=== PATIENT | female | born 1940 | race Caucasian/White ===

== ENCOUNTER 2023-07-10 09:29 | Outpatient (OUT) | payer MEDICARE, BC, SELFPAY ==
[2023-07-10 09:49] LABS: Bilirubin Urine NEGATIVE (NEGATIVE); Blood Urine LARGE (NEGATIVE); Clarity Urine CLEAR (CLEAR); Color Urine LT. YELLOW (YELLOW); Glucose Urine UA NEGATIVE (NEGATIVE); Ketones Urine NEGATIVE (NEGATIVE); Leukocyte Esterase Urine MODERATE (NEGATIVE); Nitrite Urine NEGATIVE (NEGATIVE); Protein Urine NEGATIVE (NEG/TRACE); Urobilinogen Urine 0.2 EU/dL (0.2-1.0)
[2023-07-10 11:53] LABS: Creatinine Urine Random 190.21 mg/dL (20.00-300.00); Microalbum Creatinine Ratio Ur 11.5 mg/g (0.0-29.9); Microalbumin Urine Random 2.2 mg/dL (<=30.0)
[2023-07-10 14:38] LABS: Alanine Aminotransferase 26 U/L (14-59); Albumin Level 3.9 g/dL (3.4-5.0); Alkaline Phosphatase 63 U/L (46-116); Anion Gap 13.6; Aspartate Amino Transferase 19 U/L (15-37); BUN Creatinine Ratio 18.7; Calcium 9.5 mg/dL (8.5-10.1); Carbon Dioxide 27.5 mmol/L (21.0-32.0); Chloride 103 mmol/L (98-107); Chol HDL Ratio 2.8; Cholesterol 159 mg/dL (<=200); Estimated GFR (African America >60 (>=60); Estimated GFR (Non-African Ame 59 (>=60); Globulin 3.8 g/dL; Glucose 95 mg/dL (74-106); HDL Cholesterol 57 mg/dL (40-60); LDL Cholesterol Calculated 75.6 mg/dL; Potassium 4.1 mmol/L (3.5-5.1); Sodium 140 mmol/L (136-145); Total Protein 7.7 g/dL (6.4-8.2); Triglycerides 132 mg/dL (<=150); VLDL CHOLESTEROL 26.4 mg/dL
== END 2023-07-10 09:30 | disposition home or self-care (01) ==
LOC: LAB 09:34
PROVIDERS: PCP Internal Medicine; Visit Provider Internal Medicine
DX: I12.9 Hypertensive chronic kidney disease with stage 1 through stage 4 chronic kidney disease, or unspecified chronic kidney disease (principal); N18.2 Chronic kidney disease, stage 2 (mild); E78.5 Hyperlipidemia, unspecified
CPT/HCPCS: 36415; 80053; 80061; 81003; 82043; 82570

== ENCOUNTER 2024-01-16 22:26 | Emergency (ER) | payer MEDICARE, BC, SELFPAY ==
[2024-01-16 23:07] VITALS: BP 176/105; PULSE 92; TEMP 37.3; O2SAT 92
--- NOTE | 2024-01-16 23:37 | XR_ITS ---
The [address] [address] Patient Name: JOSE LUIS GARCIA MRN: [id number] date: 1940 Sex: F Assigned Patient Location: ER Current Patient Location: ED.MAIN Accession/Order Number: [id number] Exam Date: 01/16/2024 23:49 Report Date: 01/17/2024 00:57 At the request of: NAOMI BANUELOS Procedure: XR chest 2V EXAM: XR chest 2V HISTORY: Cough. COMPARISON: None. TECHNIQUE: PA and lateral views obtained. FINDINGS: Heart is enlarged. There is vascular cephalization with Bird B lines in the lower lung russell. No focal consolidation or large effusion. No acute bony abnormality. XR/XR chest 2V IMPRESSION: Cardiomegaly and congestive pattern could reflect edema or bronchiolitis. Electronically authenticated by: RAIZA VALDEZ Date: 01/17/2024 00:57
--- NOTE | 2024-01-16 23:38 | ED_ITS ---
HPI HPI - General Adult General Chief complaint: Upper Respiratory Infection Stated complaint: congestion, cough Time Seen by Provider: 01/16/24 22:46 Source: patient Mode of arrival: walk-in Limitations: no limitations History of Present Illness HPI narrative: Patient developed flu-like symptoms on 01/13/24 while returning from a vacation in [place]. She was exposed to a baby who had cold symptoms but never got tested. She complains of headache, fatigue, muscle aches, chest congestion and a productive cough. Nausea but no vomiting. No problems with urination or BMs. She has been taking OTC cold meds without any relief including guaifenesin that was started this morning. Related Data Previous Rx's ?Medication ?Instructions ?Recorded albuterol sulfate 90 mcg/actuation 2 inh inhalation Q6H PRN shortness 01/17/24 aerosol inhaler of breath or wheezing #6.7 grams hczkdfbzxkdtqza-lknijkodxwoarut-OA 5 ml PO Q6H PRN cold symptoms #118 01/17/24 2 mg-30 mg-10 mg/5 mL oral syrup mL (Bromfed DM) Allergies Allergy/AdvReac Type Severity Reaction Status Date / Time Sulfa (Sulfonamide Allergy Mild Verified 01/16/24 23:42 Antibiotics) Opioid HPI Opioid Management Most Recent Opioid Data: No Data to Display Exam Narrative Exam Narrative: Nurses notes and vital signs reviewed and patient is not hypoxic. Afebrile General: Well-appearing and in no apparent distress. Skin: Warm, dry, no pallor noted. No rash. Head: Normocephalic, atraumatic. Neck: Supple, non-tender. No cervical lymphadenopathy or meningismus Eye: Pupils are equal, round and EOMI. No scleral icterus. Ears, Nose, Mouth, and Throat: TMs are clear, no posterior oropharynx erythema or Palatal petechia. Moderate nasal mucosal hypertrophy Oral mucosa is moist, uvula is mid-line Cardiovascular: Regular Rate and Rhythm without murmur, gallop or rub. Respiratory: No accessory muscle use or respiratory distress. Lungs are clear to auscultation, no wheezing, rales or rhonchi Musculoskeletal: normal ROM, no calf or popliteal tenderness, no lower extremity edema/swelling GI: Abdomen is soft, non-distended. Normal bowel sounds. No tenderness to palpation. No rebound, guarding, or rigidity noted. Neurological: A&O x4. No cranial nerve dysfunction observed. No truncal ataxia. Moves all extremities. Sensation intact. Psychiatric: Cooperative and interactive. Normal mood and affect. Constitutional Vital Signs, click to edit/add: Last Vital Signs Temp 99.1 F 01/16/24 23:07 Pulse 92 H 01/16/24 23:07 Resp 16 01/16/24 23:07 BP 176/105 H 01/16/24 23:07 Pulse Ox 95 01/16/24 23:54 O2 Del Method Room Air 01/16/24 23:54 Course Vital Signs Vital signs: Vital Signs Temperature 99.1 F 01/16/24 23:07 Pulse Rate 92 H 01/16/24 23:07 Respiratory Rate 16 01/16/24 23:07 Blood Pressure 176/105 H 01/16/24 23:07 Pulse Oximetry 92 L 01/16/24 23:07 Oxygen Delivery Method Room Air 01/16/24 23:07 Temperature 99.1 F 01/16/24 23:07 Pulse Rate 92 H 01/16/24 23:07 Respiratory Rate 16 01/16/24 23:07 Blood Pressure 176/105 H 01/16/24 23:07 Pulse Oximetry 95 01/16/24 23:54 Oxygen Delivery Method Room Air 01/16/24 23:54 Medical Decision Making MDM Narrative Medical decision making narrative: The patient tested negative for influenza and COVID. Chest x-ray showed findings consistent with bronchiolitis. The remainder of the blood tests were also unremarkable including a negative troponin and negative BNP. Patient and family were informed of results. She was discharged home with a prescription for Bromfed syrup to take for cough and an albuterol mdi for any continued bronchitis. She was given a treatment with an albuterol neb to help open things up here in the emergency department for discharge Lab Data Lab results reviewed: Yes I reviewed the patient's lab results Labs: Lab Results 01/16/24 01/16/24 Range/Units 23:47 23:49 WBC 10.4 (4.0-11.0) 10^3/uL RBC 4.75 (4.20-5.40) 10^6/uL Hgb 14.0 (12.0-16.0) g/dL Hct 43.8 (36.0-48.0) % MCV 92.2 (81.0-99.0) fL MCH 29.5 (26.7-34.0) pg MCHC 32.0 (29.9-35.2) g/dL RDW 12.5 (11.0-15.0) % Plt Count 145 L (150-450) 10^3/uL MPV 10.7 (9.5-13.5) fL Neut % (Auto) 85.6 H (43.0-75.0) % Lymph % (Auto) 7.0 L (20.5-60.0) % [place] % (Auto) 6.3 (1.7-12.0) % Eos % (Auto) 0.5 L (0.9-7.0) % Baso % (Auto) 0.3 (0.2-2.0) % Neut # (Auto) 8.9 H (1.4-6.5) 10^3/uL Lymph # (Auto) 0.7 L (1.2-3.8) 10^3/uL [place] # (Auto) 0.7 (0.3-0.8) 10^3/uL Eos # (Auto) 0.1 (0.0-0.7) 10^3/uL Baso # (Auto) 0.0 (0.0-0.1) 10^3/uL Abs Immat Gran (auto) 0.03 (0.00-0.03) 10^3/uL Imm/Tot Granulo (auto) 0.3 (0.0-0.5) % Sodium 131 L (136-145) mmol/L Potassium 4.7 (3.5-5.1) mmol/L Chloride 97 L (98-107) mmol/L Carbon Dioxide 22.8 (21.0-32.0) mmol/L Anion Gap 15.9 BUN 12.0 (7.0-18.0) mg/dL Creatinine 0.82 (0.55-1.02) mg/dL Est GFR ( Amer) >60 (>=60) Est GFR (Non-Af Amer) >60 (>=60) BUN/Creatinine Ratio 14.6 Glucose 110 H (74-106) mg/dL Calcium 9.2 (8.5-10.1) mg/dL Total Bilirubin 1.5 H (0.2-1.0) mg/dL AST 38 H (15-37) U/L ALT 23 (14-59) U/L Alkaline Phosphatase 69 (46-116) U/L Troponin I High Sens 13.6 (4.0-51.3) pg/mL NT-Pro-B Natriuret Pep 103.0 (<=1800.0) pg/mL Total Protein 7.6 (6.4-8.2) g/dL Albumin 3.5 (3.4-5.0) g/dL Globulin 4.1 g/dL Albumin/Globulin Ratio 0.9 Influenza Type A Ag Negative Influenza Type B Ag Negative SARS-CoV-2 Ag (CV2AG) Negative (NEGATIVE) Imaging Data Chest x-ray: Radiologist's impression: ITS Impressions Chest X-Ray 01/16/24 23:37 IMPRESSION: Cardiomegaly and congestive pattern could reflect edema or bronchiolitis. Electronically authenticated by: RAIZA VALDEZ Date: 01/17/2024 00:14 Discharge Plan Discharge Stand Alone Forms: Portal Instructions Chief Complaint: Upper Respiratory Infection Clinical Impression: Bronchiolitis Patient Disposition: Home, Self-Care Time of Disposition Decision: 00:30 Prescriptions / Home Meds: New kwejajlslpyfzgz-kxcismdek-QQ [Bromfed DM] 2-30-10 mg/5 mL syrup 5 ml PO Q6H PRN (Reason: cold symptoms) Qty: 118 0RF albuterol sulfate 90 mcg/actuation HFA aerosol inhaler 2 inh inhalation Q6H PRN (Reason: shortness of breath or wheezing) Qty: 6.7 0RF Print Language: Bahraini Instructions: Bronchiolitis (ED) Referrals: LAW OROPEZA [Primary Care Provider] - 1 week
[2024-01-16 23:54] VITALS: O2SAT 95
[2024-01-16 23:59] LABS: Basophils Percent Auto 0.3 % (0.2-2.0); Eosinophils Absolute Auto 0.1 10^3/uL (0.0-0.7); Eosinophils Percent Auto 0.5 % (0.9-7.0); Hematocrit 43.8 % (36.0-48.0); Immature Granulocytes Abs Auto 0.03 10^3/uL (0.00-0.03); Immature Granulocytes Pct Auto 0.3 % (0.0-0.5); Lymphocytes Absolute Auto 0.7 10^3/uL (1.2-3.8); Mean Corpuscular Hemoglobin 29.5 pg (26.7-34.0); Mean Corpuscular Volume 92.2 fL (81.0-99.0); Mean Platelet Volume 10.7 fL (9.5-13.5); Monocytes Absolute Auto 0.7 10^3/uL (0.3-0.8); Monocytes Percent Auto 6.3 % (1.7-12.0); Neutrophils Absolute Auto 8.9 10^3/uL (1.4-6.5); Neutrophils Percent Auto 85.6 % (43.0-75.0); Platelet Count 145 10^3/uL (150-450); Red Blood Count 4.75 10^6/uL (4.20-5.40); Red Cell Distribution Width 12.5 % (11.0-15.0); White Blood Count 10.4 10^3/uL (4.0-11.0)
[2024-01-17 00:09] LABS: Influenza Virus A Antigen Negative; Influenza Virus B Antigen Negative; Internal Control Within Normal Limits; SARS-CoV-2 Ag NEGATIVE (NEGATIVE)
[2024-01-17 00:11] LABS: Anion Gap 15.9
[2024-01-17 00:18] LABS: Alanine Aminotransferase 23 U/L (14-59); Albumin Globulin Ratio 0.9; Albumin Level 3.5 g/dL (3.4-5.0); Alkaline Phosphatase 69 U/L (46-116); Aspartate Amino Transferase 38 U/L (15-37); BUN Creatinine Ratio 14.6; Bilirubin Total 1.5 mg/dL (0.2-1.0); Calcium 9.2 mg/dL (8.5-10.1); Carbon Dioxide 22.8 mmol/L (21.0-32.0); Chloride 97 mmol/L (98-107); Estimated GFR (African America >60 (>=60); Estimated GFR (Non-African Ame >60 (>=60); Globulin 4.1 g/dL; Glucose 110 mg/dL (74-106); Potassium 4.7 mmol/L (3.5-5.1); Sodium 131 mmol/L (136-145); Total Protein 7.6 g/dL (6.4-8.2); Troponin I High Sensitivity 13.6 pg/mL (4.0-51.3)
[2024-01-17 00:32] VITALS: O2SAT 93
[2024-01-17] MEDS: ALBUTEROL SULFATE 2.5 MG/3 ML VIAL NEB IH (00:50)
[2024-01-17 00:52] VITALS: PULSE 92; O2SAT 92
== END 2024-01-17 01:09 | disposition home or self-care (01) ==
PROVIDERS: Emergency Provider Emergency Medicine; PCP Internal Medicine
DX: J21.9 Acute bronchiolitis, unspecified (principal)
CPT/HCPCS: 36415; 71046; 80053; 83880; 84484; 85025; 87804; 87811; 94640; 99284

== ENCOUNTER 2024-06-18 07:58 | Outpatient (OUT) | payer MEDICARE, BC, SELFPAY ==
[2024-06-18 08:28] LABS: Basophils Percent Auto 0.8 % (0.2-2.0); Eosinophils Absolute Auto 0.1 10^3/uL (0.0-0.7); Eosinophils Percent Auto 2.3 % (0.9-7.0); Hematocrit 44.4 % (36.0-48.0); Hemoglobin 14.5 g/dL (12.0-16.0); Immature Granulocytes Abs Auto 0.01 10^3/uL (0.00-0.03); Immature Granulocytes Pct Auto 0.2 % (0.0-0.5); Lymphocytes Percent Auto 38.9 % (20.5-60.0); Mean Corpuscular HGB Conc 32.7 g/dL (29.9-35.2); Mean Corpuscular Volume 88.8 fL (81.0-99.0); Monocytes Absolute Auto 0.4 10^3/uL (0.3-0.8); Monocytes Percent Auto 8.3 % (1.7-12.0); Neutrophils Absolute Auto 2.6 10^3/uL (1.4-6.5); Neutrophils Percent Auto 49.5 % (43.0-75.0); Platelet Count 153 10^3/uL (150-450); Red Cell Distribution Width 13.8 % (11.0-15.0); White Blood Count 5.2 10^3/uL (4.0-11.0)
[2024-06-18 09:02] LABS: Creatinine Urine Random 99.43 mg/dL (20.00-300.00); Microalbumin Urine Random 1.3 mg/dL (<=30.0)
[2024-06-18 09:36] LABS: Alanine Aminotransferase 34 U/L (14-59); Albumin Globulin Ratio 1.1; Albumin Level 3.8 g/dL (3.4-5.0); Alkaline Phosphatase 86 U/L (46-116); Anion Gap 13.5; Aspartate Amino Transferase 29 U/L (15-37); BUN Creatinine Ratio 16.1; Bilirubin Total 0.9 mg/dL (0.2-1.0); Calcium 9.4 mg/dL (8.5-10.1); Carbon Dioxide 25.5 mmol/L (21.0-32.0); Chloride 105 mmol/L (98-107); Chol HDL Ratio 2.6; Cholesterol 158 mg/dL (<=200); Estimated GFR (African America >60 (>=60); Estimated GFR (Non-African Ame >60 (>=60); Globulin 3.4 g/dL; Glucose 93 mg/dL (74-106); HDL Cholesterol 60 mg/dL (40-60); Sodium 140 mmol/L (136-145); Thyroid Stimulating Hormone 3.474 uIU/mL (0.358-3.740); Total Protein 7.2 g/dL (6.4-8.2); Triglycerides 130 mg/dL (<=150)
[2024-06-18 09:38] LABS: Free T4 0.91 ng/dL (0.76-1.46)
== END 2024-06-18 07:59 | disposition home or self-care (01) ==
LOC: LAB 08:00
PROVIDERS: PCP Internal Medicine; Visit Provider Internal Medicine
DX: I12.9 Hypertensive chronic kidney disease with stage 1 through stage 4 chronic kidney disease, or unspecified chronic kidney disease (principal); N18.31 Chronic kidney disease, stage 3a; M15.9 Polyosteoarthritis, unspecified; M81.0 Age-related osteoporosis without current pathological fracture; E55.9 Vitamin D deficiency, unspecified; E78.2 Mixed hyperlipidemia; F51.01 Primary insomnia; G25.81 Restless legs syndrome
CPT/HCPCS: 36415; 80053; 80061; 82043; 82570; 84439; 84443; 85025

== ENCOUNTER 2025-01-13 09:01 | Outpatient (OUT) | payer MEDICARE, BC, SELFPAY ==
--- OUTSIDE RECORDS SUMMARY | 2025-01-13 09:24 | XMS_ITS | CCD ---
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 Name Role Phone DR LAW OROPEZA Primary Care Unavailable JOHNNA, DR FOY Consulting Unavailable JOHNNA, DR FOY Attending Unavailable JOHNNA, DR FOY Admitting Unavailable JOHNNA, DR FOY Primary Care Unavailable COAL RUN, DR CAITIE Gordon Consulting Unavailable JOHNNA, DR FOY Attending Unavailable JOHNNA, DR FOY Admitting Unavailable JOHNNA, DR FOY Consulting Unavailable JOHNNA, DR FOY Primary Care Unavailable JOHNNA, DR FOY Consulting Unavailable JOHNNA, DR FOY Attending Unavailable JOHNNA, DR FOY Admitting Unavailable Law Oropeza DO Unavailable Law Oropeza DO Primary Care Provider Dave Powers MD Unavailable [phone] BRAYDEN MANZANARES Attending Unavailable LAW OROPEZA Referring Unavailable KAVYA SINGH Attending Unavailable BRAYDEN MANZANARES Attending Unavailable LAW OROPEZA Referring Unavailable AMERICO LEONE Attending Unavailable BRAYDEN MANZANARES Attending Unavailable LAW OROPEZA Attending Unavailable LAW OROPEZA Referring Unavailable LAW OROPEZA Attending Unavailable LAW OROPEZA Referring Unavailable BRAYDEN MANZANARES Attending Unavailable JENNY LEIGH Attending Unavailable LAW OROPEZA Attending Unavailable LAW OROPEZA Referring Unavailable LAW OROPEZA Attending Unavailable LAW OROPEZA Referring Unavailable BRAYDEN MANZANARES Attending Unavailable LAW OROPEZA Referring Unavailable AMERICO LEONE Referring Unavailable AMERICO LEONE Referring Unavailable Allergies Allergy Classification Reported Allergen(s) Allergy Type Date of Onset Reaction(s) Facility (1 source) Sulfonamides (Antibiotic) Drug allergy (disorder) [facility] Repository (15 sources) Sulfanilamide Allergy to substance 3 Unknown [facility] Work Phone: Medications Current Medications Medication Drug Class(es) Dates Sig (Normalized) Sig (Original) acetaminophen 500 mg oral tablet (15 sources) take 1 tablet by mouth every eight hours as needed for pain acetaminophen (Tylenol) 500 MG tablet Take 500 mg by mouth every 8 (eight) hours if needed for mild pain. Active albuterol 0.83 mg/ml inhalation solution (18 sources) beta2-Adrenergic Agonist Start: 01-23-2024 End: 06-24-2024 albuterol (2.5 MG/3ML) 0.083% nebulizer solution Indications: Mild intermittent reactive airway disease with acute exacerbation (CMS/HCC) Take 3 mL (2.5 mg) by nebulization 4 (four) times a day as needed for wheezing or shortness of breath 360 mL 3 01/23/2024 06/24/2024 Discontinued Start: 01-17-2024 take 2 puff(s) by in halation every six hours albuterol HFA 90 mcg/act inhaler Inhale 2 puffs every 6 (six) hours if needed 01/17/2024 Active aspirin 81 mg delayed release oral tablet (15 sources) Platelet Aggregation Inhibitor, Nonsteroidal Anti-inflammatory Drug take 1 tablet by mouth once daily aspirin 81 MG EC tablet Take 81 mg by mouth 1 (one) time each day at the same time. Active atorvastatin 20 mg oral tablet (15 sources) HMG-CoA Reductase Inhibitor Start : 05-12 take 1 tablet by mouth at bedtime atorvastatin (Lipitor) 20 MG tablet Indications: Mixed hyperlipidemia (CMS/HCC) TAKE 1 TABLET BY MOUTH AT BEDTIME 90 tablet 3 05/12/2024 Active Calcium Citrate / Vitamin D (15 sources) take 1 tablet by mouth once daily Calcium Citrate-Vitamin D (CALCIUM CITRATE PETITE/VIT D PO) Take 1 tablet by mouth 1 (one) time each day at the same time. Active doxycycline hyclate 100 mg oral capsule (2 sources) Tetracycline-class Drug Start : 09-30 End: 10-07 doxycycline (Vibramycin) 100 MG capsule Indications: Lower respiratory infection , Acute non-recurrent pansinusitis Take 1 capsule (100 mg) by mouth in the morning and 1 capsule (100 mg) before bedtime. Do all this for 7 days. Take with at least 8 ounces (large glass) of water, do not lie down for 30 minutes after. 14 capsule 09/30/2024 10/07/2024 Active glucosamine sulfate 500 mg oral capsule (15 sources) take 1 capsule by mouth once daily Glucosamine 500 MG capsule Take 1 capsule by mouth 1 (one) time each day at the same time. Active hydrocortisone 25 mg/ml topical cream (15 sources) Corticosteroid Start : 03-10 hydrocortisone 2.5 % cream Indications: Rash APPLY TO AFFECTED AREA TWICE A DAY 28.35 g 2 03/10/2024 Active hydrocortisone acetate 25 mg/ml / pramoxine hydrochloride 10 mg/ml rectal cream (15 sources) Corticosteroid Start : 07-18 pramoxine-hydrocortison e, perianal, (Analpram HC) 2.5-1 % cream Indications: Hemorrhoids, unspecified hemorrhoid type Insert 1 application into the rectum 3 (three) times a day as needed for hemorrhoids. 30 g 1 07/18/2023 Active ibandronic acid 150 mg oral tablet (6 sources) Bisphosphonate Start : 08-24 End: 08-24 take 1 tablet by mouth every 30 days in the morning ibandronate (Boniva) 150 MG tablet Indications: Other osteoporosis without current pathological fracture (CMS/HCC) Take 1 tablet (150 mg) by mouth every 30 (thirty) days Take in morning with full glass of water on an empty stomach. No food, drink, meds, or lying down for 60 minutes after. 12 tablet 08/24/2024 08/24/2025 Active magnesium oxide 400 mg oral tablet (15 sources) take 1 tablet by mouth once daily magnesium oxide (Mag-Ox) 400 MG tablet Take 400 mg by mouth 1 (one) time each day at the same time. Active methylPREDNISolone (2 sources) Corticosteroid Start : 09-30 End: 10-07 methylPREDNISolone (Medrol Dospak) 4 MG tablets Indications: Lower respiratory infection , Acute non-recurrent pansinusitis Take as directed on package. 21 tablet 09/30/2024 10/07/2024 Active ksbknacumkhu-exfr-evrvq als-folic acid (Centrum Silver, geriatric,) tablet (15 sources) take 1 tablet by mouth in the morning gktijsvebszu-ppzs-onzza als-folic acid (Centrum Silver, geriatric,) tablet Take 1 tablet by mouth in the morning. Active niacin 500 mg oral tablet (15 sources) Nicotinic Acid take 1 tablet by mouth once daily niacin 500 MG tablet Take 500 mg by mouth 1 (one) time each day at the same time. Active oseltamivir 75 mg oral capsule (2 sources) Neuraminidase Inhibitor Start : 09-24 End: 09-29 take 1 capsule by mouth in the morning oseltamivir (Tamiflu) 75 MG capsule Indications: Influenza A Take 1 capsule (75 mg) by mouth in the morning and 1 capsule (75 mg) before bedtime. Do all this for 5 days. 10 capsule 09/24/2024 09/29/2024 Active rOPINIRole 0.25 mg oral tablet (15 sources) Nonergot Dopamine Agonist rOPINIRole (Requip) 0.25 MG tablet Take 0.25 mg by mouth as needed at bedtime Active traZODone hydrochloride 50 mg oral tablet (15 sources) Serotonin Reuptake Inhibitor Start : 07-18 End: 07-17 traZODone (Desyrel) 50 MG tablet Indications: Primary insomnia Take 1 tablet (50 mg) by mouth as needed at bedtime for sleep. 30 tablet 4 07/18/2023 Active Problems Active Problems Problem Classification Problem Date Documented Date Episodic/Chronic Administrative/social admission (4 sources) Patient encounter status; Translations: [Other specified counseling] 07-15-2024 Episodic Asthma (1 source) Exacerbation of moderate persistent asthma; Translations: [Moderate persistent asthma with (acute) exacerbation] 07-21-2024 Chronic Chronic kidney disease (17 sources) Chronic kidney disease stage 3A ; Translations: [Stage 3a chronic kidney disease (HCC)] Onset: 05-27-2023 02-19-2024 Chronic Disorders of lipid metabolism (20 sources) Pure hypercholesterolemia, unspecified; Translations: [Hyperlipidemia] Onset: 01-11-2023 Chronic Essential hypertension (20 sources) Essential (primary) hypertension; Translations: [Essential hypertension] Onset: 01-18-2023 05-27-2023 Chronic Influenza (2 sources) Influenza due to Influenza A virus; Translations: [Influenza due to other identified influenza virus with other respiratory manifestations] 09-24-2024 Episodic Malaise and fatigue (4 sources) Chronic fatigue, unspecified; Translations: [CHRONIC FATIGUE UNSPECIFIED] Onset: 07-13-2022 Chronic Miscellaneous mental health disorders (17 sources) Primary insomnia; Translations: [Primary insomnia] Onset: 07-18-2023 07-18-2023 Chronic Mycoses (2 sources) Onychomycosis; Translations: [Tinea unguium] 07-21-2024 Episodic Nutritional deficiencies (17 sources) Vitamin D deficiency; Translations: [Vitamin D deficiency, unspecified] Onset: 05-27-2023 05-27-2023 Chronic Osteoarthritis (20 sources) Degenerative joint disease involving multiple joints; Translations: [Primary generalized (osteo)arthritis] Onset: 05-27-2023 Resolved: 06-24-2024 05-27-2023 Chronic Osteoporosis (18 sources) Age-related osteoporosis without current pathological fracture; Translations: [Osteoporosis] Onset: 08-23-2022 05-27-2023 Chronic Other aftercare (1 source) Other superintendent terminal (current) drug therapy; Translations: [OTH HANGERSMITH CURRENT DRUG THERAPY] Onset: 01-18-2023 Episodic Other connective tissue disease (2 sources) Pain in both feet; Translations: [Pain in right foot] 07-21-2024 Episodic Other hereditary and degenerative nervous system conditions (17 sources) Restless legs; Translations: [Restless legs syndrome] Onset: 05-27-2023 05-27-2023 Chronic Other lower respiratory disease (2 sources) Cough; Translations: [Acute cough] 09-24-2024 Episodic Other lower respiratory disease (2 sources) Lower respiratory tract infection; Translations: [Unspecified acute lower respiratory infection] 09-30-2024 Episodic Other nervous system disorders (15 sources) Chronic pain; Translations: [Other chronic pain] Onset: 05-27-2023 Resolved: 06-24-2024 06-24-2024 Chronic Other upper respiratory infections (2 sources) Acute pansinusitis; Translations: [Acute pansinusitis, unspecified] 09-30-2024 Episodic Residual codes; unclassified (2 sources) Postmenopausal state; Translations: [Asymptomatic menopausal state] 07-15-2024 Episodic Past or Other Problems Problem Classification Problem Date Documented Da te Episodic/Chronic Hemorrhoids (15 sources) Hemorrhoids; Translations: [Unspecified hemorrhoids] Onset: 05-27-2023 3 Episodic Immunizations and screening for infectious disease (2 sources) Needs influenza immunization; Translations: [Encounter for immunization] 06-24-2024 Episodic Malaise and fatigue (17 sources) Fatigue; Translations: [Other fatigue] Onset: 02-04-2024 Resolved: 02-04-2024 02-04-2024 Episodic Residual codes; unclassified (4 sources) Asymptomatic menopausal state; Translations: [ASYMPTOMATIC MENOPAUSAL STATE] Onset: 08-17-2022 Episodic Results Test Name Value Interpretation Reference Range Facility Laboratory - Microbiology an d Antimicrobial susceptibilityon 09-24-2024 SARS-CoV-2 (COVID-19) RNA REMI+probe Ql (Unsp spec) Negative [facility] No Panel Informationon 09-24 FLU A Positive [facility] FLU B Negative [facility] Interpretation and review of laboratory results Abnormal [facility] BI MAMMOGRAM SCREENING TOMOS YNTHESIS BILATERALon 08-21-2024 BI MAMMOGRAM SCREENING TOMOSYNTHESIS BILATERAL This is a summary report. The complete report is available in the patient's medical record. If you cannot access the medical record, please contact the sending organization for a detailed fax or copy. Examination: BI MAMMOGRAM SCREENING TOMOSYNTHESIS BILATERAL Clinical History: Screening Technique: Screening digital mammography study of both breasts was performed with 2-D and 3-D tomosynthesis imaging. Study was compared to the prior exam dated 05/28/2022. Findings: There is no evidence of interval dominant spiculated mass, grouped microcalcifications, or skin thickening which would be suggestive of malignancy. A few small benign-appearing asymmetric densities on the left similar to the prior study. A few benign-appearing calcifications as well as vascular calcifications are noted bilaterally. IMPRESSION: Impression: No specific evidence of malignancy seen in either breast. BIRADS 2 - Benign DENSITY: There are scattered areas of fibroglandular density FOLLOW-UP: Routine Screening Mamm ELECTRONICALLY SIGNED BY: Marcos Arreaga M.D. Normal Not Available DEXA BONE DENSITYon 08-21-20 DEXA BONE DENSITY Examination: DEXA BRIEN NE DENSITY Clinical History: Asymptomatic menopausal state Technique: Bone density study was performed. T score values for the lumbar spine, right femoral neck and left femoral neck were obtained. Comparison: 11/06/2019 Findings: Value for the lumbar spine from L1-L4 is -0.4. Value for the right femoral neck is -2.2. Value for the left femoral neck is -1.2. No evidence of osteoporosis. Study was compared to the prior exam dated 11/02/2019 which demonstrates osteoporosis with high increased fracture risk. Findings are mildly improved compared to the prior exam. IMPRESSION: Impression: Findings compatible with severe osteopenia with moderate to high increased fracture risk. Findings are mildly improved compared to the prior exam. ELECTRONICALLY SIGNED BY: Marcos Arreaga M.D. Normal Not Available ALL CBC WITH AUTO DIFFon BASOPHILS ABSOLUTE AUTO 0.0 [facility] Basophils/100 WBC (Bld) 0.8 % 0.2 - 2.0 % [facility] Eosinophils/100 WBC (Bld) 2.3 % 0.9 - 7.0 % [facility] Erythrocyte distribution width (RBC) [Ratio] 13.8 % 11.0 - 15.0 % [facility] Hematocrit (Bld) [Volume fraction] 44.4 % 36.0 - 48.0 % [facility] Hemoglobin (Bld) [Mass/Vol] 14.5 g/dL 12.0 - 16.0 g/dL [facility] IMMATURE GRANULOCYTES ABS AUTO 0.01 [facility] Immature granulocytes/100 WBC (Bld) 0.2 % 0.0 - 0.5 % [facility] LYMPHOCYTES ABSOLUTE AUTO 2.0 [facility] Lymphocytes/100 WBC (Bld) 38.9 % 20.5 - 60.0 % [facility] MCH (RBC) [Entitic mass] 29.0 pg 26.7 - 34.0 pg [facility] MCHC (RBC) [Mass/Vol] 32.7 g/dL 29.9 - 35.2 g/dL [facility] MCV (RBC) [Entitic vol] 88.8 fL 81.0 - 99.0 fL [facility] MONOCYTES ABSOLUTE AUTO 0.4 [facility] Monocytes/100 WBC (Bld) 8.3 % 1.7 - 12.0 % [facility] NEUTROPHILS ABSOLUTE AUTO 2.6 [facility] Neutrophils/100 WBC (Bld) 49.5 % 43.0 - 75.0 % [facility] Platelet mean volume (Bld) [Entitic vol] 10.0 fL 9.5 - 13.5 fL [facility] TBH EO # 0.1 [facility] PLT 153 [facility] RBC 5.00 [facility] WBC 5.2 [facility] XR CHEST 2 VIEWSon 4 XR CHEST 2 VIEWS FINDINGS: Persistent diffuse interstitial prominence corresponds within the bases with upper lobe emphysematous changes, extent of which within the bases is less conspicuous suggesting a resolving infectious pneumonia. No pleural effusion , lymphadenopathy, or significant focal areas of parenchymal consolidation. IMPRESSION: Findings consistent with resolving pneumonia with underlying COPD/interstitial lung disease TRANSCRIBED BY: ELECTRONICALLY SIGNED BY: Avtar Lee MD Normal Not Available CBC AUTO DIFFon 01-11-2023 BASO # 0.1 103/ul Normal 0.0-0.1 [facility] Comment on above: Performed By: #### C BC #### [facility] [address] [place] [address] Dr. Bill Moise Basophils/100 WBC (Bld) 0.8 % Normal 0.2-2.0 [facility] Comment on above: Performed By: #### C BC #### [facility] [address] [place] [address] Dr. Bill Moise EO # 0.2 103/ul Normal 0.0-0.7 [facility] Comment on above: Performed By: #### C BC #### [facility] [address] [place] [address] Dr. Bill Moise Eosinophils/100 WBC (Bld) 2.6 % Normal 0.9-7.0 [facility] Comment on above: Performed By: #### C BC #### [facility] [address] [place] [address] Dr. Bill Moise Erythrocyte distribution width (RBC) [Ratio] 13.0 % Normal 11.0-15.0 [facility] Comment on above: Performed By: #### C BC #### [facility] [address] [place] [address] Dr. Bill Moise Hematocrit (Bld) [Volume fraction] 42.1 % Normal 36.0-48.0 [facility] Comment on above: Performed By: #### C BC #### [facility] [address] [place] [address] Dr. Bill Moise Hemoglobin (Bld) [Mass/Vol] 13.8 g/dL Normal 12.0-16.0 [facility] Comment on above: Performed By: #### C BC #### [facility] [address] [place] [address] Dr. Bill Moise IG # 0.02 10e3/ul Normal 0.00-0.03 [facility] Comment on above: Performed By: #### C BC #### [facility] [address] [place] [address] Dr. Bill Moise IG % 0.3 % Normal 0.0-0.5 [facility] Comment on above: Performed By: #### C BC #### [facility] [address] [place] [address] Dr. Bill Moise LYMPH # 1.6 103/ul Normal 1.2-3.8 [facility] Comment on above: Performed By: #### C BC #### [facility] [address] [place] [address] Dr. Bill Moise Lymphocytes/100 WBC (Bld) 25.2 % Normal 20.5-60.0 [facility] Comment on above: Performed By: #### C BC #### [facility] [address] [place] [address] Dr. Bill Moise MANUAL DIFF REQ NO Normal [facility] Comment on above: Performed By: #### C BC #### [facility] [address] [place] [address] Dr. Bill Moise MCH (RBC) [Entitic mass] 28.8 pg Normal 26.7-34.0 [facility] Comment on above: Performed By: #### C BC #### [facility] [address] [place] [address] Dr. Bill Moise MCHC (RBC) [Mass/Vol] 32.8 g/dL Normal 29.9-35.2 [facility] Comment on above: Performed By: #### C BC #### [facility] [address] [place] [address] Dr. Bill Moise MCV (RBC) [Entitic vol] 87.7 fL Normal 81.0-99.0 [facility] Comment on above: Performed By: #### C BC #### [facility] [address] [place] [address] Dr. Bill Moise MONO # 0.5 103/ul Normal 0.3-0.8 [facility] Comment on above: Performed By: #### C BC #### [facility] [address] [place] [address] Dr. Bill Moise Monocytes/100 WBC (Bld) 8.2 % Normal 1.7-12.0 [facility] Comment on above: Performed By: #### C BC #### [facility] [address] [place] [address] Dr. Bill Moise NEUT # 4.1 103/ul Normal 1.4-6.5 [facility] Comment on above: Performed By: #### C BC #### [facility] [address] [place] [address] Dr. Bill Moise Neutrophils/100 WBC (Bld) 62.9 % Normal 43.0-75.0 [facility] Comment on above: Performed By: #### C BC #### [facility] [address] [place] [address] Dr. Bill Moise Platelet mean volume (Bld) [Entitic vol] 9.9 fL Normal 9.5-13.5 [facility] Comment on above: Performed By: #### C BC #### [facility] [address] [place] [address] Dr. Bill Moise PLT 163 103/ul Normal 150-450 [facility] Comment on above: Performed By: #### C BC #### [facility] [address] [place] [address] Dr. Bill Moise RBC 4.80 106/ul Normal 4.20-5.40 [facility] Comment on above: Performed By: #### C BC #### [facility] [address] [place] [address] Dr. Bill Moise WBC 6.5 103/ul Normal 4.0-11.0 [facility] Comment on above: Performed By: #### C BC #### [facility] [address] [address] [address] Bill Moise LIPID PROFILEon 01-11-2023 CHOL-HDL RATIO NORM SEE BELOW Normal [facility] Comment on above: Result Comment: 3.3 - 4.4 LOW RISK 4.4 - 7.1 AVERAGE RISK 7.1 - 11.0 MODERATE RISK >11.0 HIGH RISK Performed By: #### L IPID, TSH, CMP #### [facility] [address] [address] [address] Bill Moise Cholesterol [Mass/Vol] 144 mg/dL Normal <=200 [facility] Comment on above: Performed By: #### L IPID, TSH, CMP #### [facility] [address] [address] [address] Bill Moise Cholesterol in HDL [Mass/Vol] 59 mg/dL Normal 40-60 [facility] Comment on above: Performed By: #### L IPID, TSH, CMP #### [facility] [address] [address] [address] Bill Moise Cholesterol in LDL [Mass/Vol] 69.8 mg/dL Normal [facility] Comment on above: Performed By: #### L IPID, TSH, CMP #### [facility] [address] [address] [address] Bill Moise Cholesterol.total/Ch olesterol in HDL [Mass ratio] 2.4 {ratio} Normal [facility] Comment on above: Performed By: #### L IPID, TSH, CMP #### [facility] [address] [address] [address] iBll Moise HDL NORMAL > or = 60 mg/dl - LO W CARDIOVASCULAR RISK <40 mg/dl - HIGH CARDIOVASCULAR RISK Normal [facility] Comment on above: Performed By: #### L IPID, TSH, CMP #### [facility] [address] [address] [address] Bill Moise LDL CALC NORMAL SEE BELOW Normal [facility] Comment on above: Result Comment: <100 mg/dl OPTIMAL 100 - 129 mg/dl NEAR OR ABOVE OPTIMAL 130 - 159 mg/dl BORDERLINE HIGH 160 - 189 mg/dl HIGH >190 mg/dl VERY HIGH Performed By: #### L IPID, TSH, CMP #### [facility] [address] [place] [address] Dr. Bill Moise Triglyceride [Mass/Vol] 76 mg/dL Normal <=150 [facility] Comment on above: Performed By: #### L IPID, TSH, CMP #### [facility] [address] [address] [address] Bill Moise VLDL CALC 15.2 mg/dL Normal [facility] Comment on above: Performed By: #### L IPID, TSH, CMP #### [facility] [address] [place] [address] Dr. Bill Moise PROF 14(COMP METB)on 023 Albumin [Mass/Vol] 3.6 g/dL Normal 3.4-5.0 [facility] Comment on above: Performed By: #### L IPID, TSH, CMP #### [facility] [address] [place] [address] Dr. Bill Moise Albumin/Globulin [Mass ratio] 1.1 {ratio} Normal [facility] Comment on above: Performed By: #### L IPID, TSH, CMP #### [facility] [address] [place] [address] Dr. Bill Moise ALP [Catalytic activity/Vol] 51 U/L Normal 46-116 [facility] Comment on above: Performed By: #### L IPID, TSH, CMP #### [facility] [address] [place] [address] Dr. Bill Moise ALT [Catalytic activity/Vol] 28 U/L Normal 14-59 [facility] Comment on above: Performed By: #### L IPID, TSH, CMP #### [facility] [address] [place] [address] Dr. Bill Moise Anion gap [Moles/Vol] 14.4 mmol/L Normal [facility] Comment on above: Performed By: #### L IPID, TSH, CMP #### [facility] [address] [address] [address] Bill Moise AST [Catalytic activity/Vol] 21 U/L Normal 15-37 [facility] Comment on above: Performed By: #### L IPID, TSH, CMP #### [facility] [address] [address] [address] Bill Moise Bilirubin [Mass/Vol] 0.9 mg/dL Normal 0.2-1.0 [facility] Comment on above: Performed By: #### L IPID, TSH, CMP #### [facility] [address] [address] [address] Bill Moise Calcium [Mass/Vol] 9.3 mg/dL Normal 8.5-10.1 [facility] Comment on above: Performed By: #### L IPID, TSH, CMP #### [facility] [address] [place] [address] Dr. Bill Moise Chloride [Moles/Vol] 106 mmol/L Normal 98-107 [facility] Comment on above: Performed By: #### L IPID, TSH, CMP #### [facility] [address] [address] [address] Bill Moise CO2 [Moles/Vol] 25.9 mmol/L Normal 21.0-32.0 [facility] Comment on above: Performed By: #### L IPID, TSH, CMP #### [facility] [address] [address] [address] Bill Moise Creatinine [Mass/Vol] 0.87 mg/dL Normal 0.55-1.02 [facility] Comment on above: Performed By: #### L IPID, TSH, CMP #### [facility] [address] [address] [address] Bill Moise EGFR-AF NORWEGIAN >60 Normal >=60 [facility] Comment on above: Performed By: #### L IPID, TSH, CMP #### [facility] [address] [address] [address] Bill Moise EGFR-NON AF [place]GIAN >60 Normal >=60 [facility] Comment on above: Performed By: #### L IPID, TSH, CMP #### [facility] [address] [address] [address] Bill Moise Globulin (S) [Mass/Vol] 3.3 g/dL Normal [facility] Comment on above: Performed By: #### L IPID, TSH, CMP #### [facility] [address] [address] [address] Bill Moise Glucose [Mass/Vol] 97 mg/dL Normal 74-106 [facility] Comment on above: Performed By: #### L IPID, TSH, CMP #### [facility] [address] [address] [address] Bill Moise Potassium [Moles/Vol] 4.3 mmol/L Normal 3.5-5.1 [facility] Comment on above: Performed By: #### L IPID, TSH, CMP #### [facility] [address] [place] [address] Dr. Bill Moise Protein [Mass/Vol] 6.9 g/dL Normal 6.4-8.2 [facility] Comment on above: Performed By: #### L IPID, TSH, CMP #### [facility] [address] [place] [address] Dr. Bill Moise Sodium [Moles/Vol] 142 mmol/L Normal 136-145 [facility] Comment on above: Performed By: #### L IPID, TSH, CMP #### [facility] [address] [place] [address] Dr. Bill Moise Urea nitrogen [Mass/Vol] 18.0 mg/dL Normal 7.0-18.0 [facility] Comment on above: Performed By: #### L IPID, TSH, CMP #### [facility] [address] [place] [address] Dr. Bill Moise Urea nitrogen/Creatinine [Mass ratio] 20.7 mg/mg Normal [facility] Comment on above: Performed By: #### L IPID, TSH, CMP #### [facility] [address] [place] [address] Dr. Bill FRANKSon 01-11-2023 TSH 2.010 uIU/mL Normal 0.358-3.740 [facility] Comment on above: Performed By: #### L IPID, TSH, CMP #### [facility] [address] [address] [address] Bill Moise XR DEXA BONE DENSITYon 08-17 XR DEXA BONE DENSITY EXAMINATION: XR DEX A BONE DENSITY, 08/17/2022 8:53 AM EDT HISTORY: Menopause present COMPARISON: 2016, 2013, 2007 TECHNIQUE: Dual-energy X-ray absorptiometry (DEXA) bone density study performed for the axial skeleton. FINDINGS: Bone mineral density AP spine L1-L4 measures 1.194 g/sq cm. T score 0.1. WHO classification: Normal. This is felt to be elevated secondary to degenerative spondylosis Lowest bone mineral density right femoral neck measures 0.688 g/sq cm. T score -2.5. WHO classification: Osteoporosis IMPRESSION: Osteoporosis. High fracture risk Electronically authenticated by: CAITIE ROCHA Date: 2022-08-17 17:09 Normal [facility] LIPID PROFILEon 07-13-2022 CHOL-HDL RATIO NORM SEE BELOW Normal [facility] Comment on above: Result Comment: 3.3 - 4.4 LOW RISK 4.4 - 7.1 AVERAGE RISK 7.1 - 11.0 MODERATE RISK >11.0 HIGH RISK Performed By: #### L IPID, BMP #### [facility] [address] [place] [address] Dr. Bill Moise Cholesterol [Mass/Vol] 156 mg/dL Normal <=200 [facility] Comment on above: Performed By: #### L IPID, BMP #### [facility] [address] [address] [address] Bill Moise Cholesterol in HDL [Mass/Vol] 57 mg/dL Normal 40-60 [facility] Comment on above: Performed By: #### L IPID, BMP #### [facility] [address] [address] [address] Bill Moise Cholesterol in LDL [Mass/Vol] 77.8 mg/dL Normal [facility] Comment on above: Performed By: #### L IPID, BMP #### [facility] [address] [place] [address] Dr. Bill Moise Cholesterol.total/Ch olesterol in HDL [Mass ratio] 2.7 {ratio} Normal [facility] Comment on above: Performed By: #### L IPID, BMP #### [facility] [address] [place] [address] Dr. Bill Moise HDL NORMAL > or = 60 mg/dl - LO W CARDIOVASCULAR RISK <40 mg/dl - HIGH CARDIOVASCULAR RISK Normal [facility] Comment on above: Performed By: #### L IPID, BMP #### [facility] [address] [place] [address] Dr. Bill Moise LDL CALC NORMAL SEE BELOW Normal [facility] Comment on above: Result Comment: <100 mg/dl OPTIMAL 100 - 129 mg/dl NEAR OR ABOVE OPTIMAL 130 - 159 mg/dl BORDERLINE HIGH 160 - 189 mg/dl HIGH >190 mg/dl VERY HIGH Performed By: #### L IPID, BMP #### [facility] [address] [place] [address] Dr. Bill Moise Triglyceride [Mass/Vol] 106 mg/dL Normal <=150 [facility] Comment on above: Performed By: #### L IPID, BMP #### [facility] [address] [place] [address] Dr. Bill Moise VLDL CALC 21.2 mg/dL Normal [facility] Comment on above: Performed By: #### L IPID, BMP #### [facility] [address] [address] [address] Bill Moise PROF CHEM 8 (BAS METB)on Anion gap [Moles/Vol] 10.2 mmol/L Normal [facility] Comment on above: Performed By: #### L IPID, BMP #### [facility] [address] [place] [address] Dr. Bill Moise Calcium [Mass/Vol] 9.3 mg/dL Normal 8.5-10.1 [facility] Comment on above: Performed By: #### L IPID, BMP #### [facility] [address] [address] [address] Bill Moise Chloride [Moles/Vol] 105 mmol/L Normal 98-107 [facility] Comment on above: Performed By: #### L IPID, BMP #### [facility] [address] [address] [address] Bill Moise CO2 [Moles/Vol] 27.9 mmol/L Normal 21.0-32.0 [facility] Comment on above: Performed By: #### L IPID, BMP #### [facility] [address] [address] [address] Bill Moise Creatinine [Mass/Vol] 0.97 mg/dL Normal 0.55-1.02 [facility] Comment on above: Performed By: #### L IPID, BMP #### [facility] [address] [place] [address] Dr. Bill Moise EGFR-AF NORWEGIAN >60 Normal >=60 [facility] Comment on above: Performed By: #### L IPID, BMP #### [facility] [address] [address] [address] Bill Moise EGFR-NON AF [place]WEGIAN 55 mL/min/1.73m2 Critically low >=60 [facility] Comment on above: Performed By: #### L IPID, BMP #### [facility] [address] [address] [address] Bill Moise Glucose [Mass/Vol] 101 mg/dL Normal 74-106 [facility] Comment on above: Performed By: #### L IPID, BMP #### [facility] [address] [address] [address] Bill Moise Potassium [Moles/Vol] 4.1 mmol/L Normal 3.5-5.1 [facility] Comment on above: Performed By: #### L IPID, BMP #### [facility] [address] [address] [address] Bill Moise Sodium [Moles/Vol] 139 mmol/L Normal 136-145 [facility] Comment on above: Performed By: #### L IPID, BMP #### [facility] [address] [place], [place] [address] Dr. Bill Moise Urea nitrogen [Mass/Vol] 12.0 mg/dL Normal 7.0-18.0 [facility] Comment on above: Performed By: #### L IPID, BMP #### [facility] [address] [place], [place] [address] Dr. Bill Moise Urea nitrogen/Creatinine [Mass ratio] 12.4 mg/mg Normal [facility] Comment on above: Performed By: #### L IPID, BMP #### [facility] [address] [place], [place] [address] Dr. Bill Moise SCREENING MAMMOGRAM W/BOB, BILATERAL*on 05-28-2022 SCREENING MAMMOGRAM W/BOB, BILATERAL* EXAMINATION: Screening Mammogram CLINICAL HISTORY: Unremarkable. COMPARISON: Dating back to 09/12/2018 TECHNIQUE: 2D and 3D Tomosynthesis of the right and left breasts was performed. FINDINGS: There are scattered fibroglandular densities within each breast. There are no suspicious masses, areas of suspicious microcalcifications or areas of architectural distortion identified. No evidence of skin thickening. There are stable areas of asymmetric density present. There are stable benign-appearing calcifications present. There are vascular calcifications present. IMPRESSION: BIRADS 2 : BENIGN FINDINGS, NORMAL INTERVAL FOLLOW UP. MAMMOGRAPHY IS VERY IMPORTANT TO YOUR HEALTH. THE CURRENT [place] [employer] GUIDELINES RECOMMEND ANNUAL MAMMOGRAPHY BEGINNING AT AGE 40. THIS FACILITY UTILIZES A REMINDER SYSTEM TO ENSURE ALL PATIENTS RECEIVE A REMINDER NOTIFICATION AT THE APPROPRIATE TIME BASED ON THE RECOMMENDATIONS OF THIS EXAM. 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 ACCREDITED BY THE [facility] AND FDA. Report reported and signed by Kinjal Watson on 05/28/2022 1443 Normal [facility] Specialist Vital Signs Date Time Vital Sign Value Performing Clinician Jordin freire 09-30-2024 15:02-0500 Body height 165.1 cm Kavya Singh NP Work Phone: [facility] 09-30-2024 15:02-0500 Body mass index (BMI) [Ratio] 27.46 kg/m2 Kavya Singh NP Work Phone: [facility] 09-30-2024 15:02-0500 Body weight 74.84 kg Kavya Raoion [employer] Work Phone: [facility] 09-30-2024 15:02-0500 Diastolic blood pressure 74 mm[Hg] Kavya Didion [employer] Work Phone: [facility] 09-30-2024 15:02-0500 Heart rate 74 /min Kavya Didion [employer] Work Phone: [facility] 09-30-2024 15:02-0500 Respiratory rate 16 /min Kavya Didion [employer] Work Phone: [facility] 09-30-2024 15:02-0500 SaO2% (BldA) [Mass fraction] 97 % Kavya Didion [employer] Work Phone: [facility] 09-30-2024 15:02-0500 Systolic blood pressure 136 mm[Hg] Kavya Didion [employer]IVER Work Phone: [facility] 09-24-2024 15:17-0500 Body mass index (BMI) [Ratio] 27.46 kg/m2 Jenny Leigh DO Work Phone: [facility] 09-24-2024 15:17-0500 Body temperature 97.59 [degF] Jenny Leigh DO Work Phone: [facility] 09-24-2024 15:17-0500 Body weight 74.84 kg Jenny Leigh DO Work Phone: [facility] 09-24-2024 15:17-0500 Diastolic blood pressure 68 mm[Hg] Jenny Leigh DO Work Phone: [facility] 09-24-2024 15:17-0500 Heart rate 97 /min Jenny Leigh DO Work Phone: [facility] 09-24-2024 15:17-0500 SaO2% (BldA) [Mass fraction] 91 % Jenny Leigh DO Work Phone: [facility] 09-24-2024 15:17-0500 Systolic blood pressure 122 mm[Hg] Jenny Leigh DO Work Phone: [facility] 06-24-2024 08:58-0400 Body mass index (BMI) [Ratio] 27.54 kg/m2 Law Oropeza DO Work Phone: [facility] 06-24-2024 08:58-0400 Body weight 75.07 kg Law Oropeza DO Work Phone: [facility] 06-24-2024 08:58-0400 Diastolic blood pressure 76 mm[Hg] Law Oropeza DO Work Phone: [facility] 06-24-2024 08:58-0400 Heart rate 60 /min Law Oropeza DO Work Phone: [facility] 06-24-2024 08:58-0400 SaO2% (BldA) [Mass fraction] 94 % Law Oropeza DO Work Phone: [facility] 06-24-2024 08:58-0400 Systolic blood pressure 164 mm[Hg] Law Oropeza DO Work Phone: [facility] Encounters Encounter Date Encounter Type Care Provider Facility Start: 10-28-2024 End: 10-28-2024 Bamboo flowsheet Brayden Manzanares DPM Work Phone: [facility] Start: 10-28-2024 End: 10-28-2024 Bamboo flowsheet Brayden Manzanares DPM Work Phone: [facility] Start: 10-28-2024 End: 10-28-2024 Patient encounter procedure Brayden Manzanares DPM Work Phone: [facility] Comment on above: Onychomycosis (Prima ry Dx); Pain in both feet Start: 10-28-2024 End: 10-28-2024 ambulatory BRAYDEN MANZANARES Not Available Start: 09-30-2024 End: 09-30-2024 Office outpatient visit 15 minutes Kavya Singh [employer]IVER Work Phone: [facility] Comment on above: Lower respiratory in fection (Primary Dx); Acute non-recurrent pansinusitis Start: 09-30-2024 End: 09-30-2024 ambulatory LAW OROPEZA Not Available Start: 09-24-2024 End: 09-24-2024 ambulatory JENNY LEIGH Not Available Start: 09-24-2024 End: 09-24-2024 Office outpatient visit 25 minutes Jenny Leigh DO Work Phone: [facility] Comment on above: Influenza A (Primary Dx); Acute cough Start: 08-21-2024 End: 08-21-2024 ambulatory AMERICO LEONE Not Available Start: 07-21-2024 End: 07-21-2024 Patient encounter procedure Brayden Manzanares DPM Work Phone: [facility] Comment on above: Onychomycosis (Prima ry Dx); Pain in both feet Start: 07-21-2024 End: 07-21-2024 ambulatory BRAYDEN MANZANARES Not Available Start: 07-21-2024 End: 07-21-2024 Bamboo flowsheet Brayden Manzanares DPM Work Phone: [facility] Start: 07-21-2024 End: 07-21-2024 Bamboo flowsheet Brayden Manzanares DPM Work Phone: [facility] Start: 07-21-2024 End: 07-28-2024 Telephone encounter Law Oropeza DO Work Phone: [facility] Start: 07-15-2024 End: 07-15-2024 Bamboo flowsheet Law Oropeza DO Work Phone: [facility] Start: 07-15-2024 End: 07-15-2024 Bamboo flowsheet Law Oropeza DO Work Phone: [facility] Start: 07-15-2024 End: 07-15-2024 Patient encounter procedure Americo Leone [employer]IVER Work Phone: [facility] Comment on above: Medicare annual well ness visit, subsequent (Primary Dx); ACP (advance care planning); Encounter for screening mammogram for malignant neoplasm of breast; Postmenopausal; Mixed hyperlipidemia (CMS/HCC); Essential hypertension (CMS/HCC) Start: 07-15-2024 End: 07-15-2024 ambulatory LAW OROPEZA Not Available Start: 06-24-2024 End: 06-24-2024 ambulatory LAW OROPEZA Not Available Start: 06-24-2024 End: 06-24-2024 Office outpatient visit 25 minutes Law Oropeza DO Work Phone: [facility] Comment on above: RLS (restless legs s yndrome) (Primary Dx); Mixed hyperlipidemia (CMS/HCC); Vitamin D deficiency; Age-related osteoporosis without current pathological fracture (CMS/HCC); Primary osteoarthritis involving multiple joints; Stage 3a chronic kidney disease (HCC) (CMS/HCC); Primary insomnia; Need for immunization against influenza; Essential hypertension (CMS/HCC); Other fatigue Start: 06-18-2024 End: 06-18-2024 Clinisync Result Encounter Law Oropeza DO Work Phone: [facility] External Department Unsolicited Start: 06-18-2024 End: 06-18-2024 Clinisync Result Encounter Law Oropeza DO Work Phone: [facility] External Department Unsolicited Start: 04-22-2024 End: 04-22-2024 ambulatory BRAYDEN MANZANARES Not Available Start: 02-19-2024 End: 02-19-2024 ambulatory LAW OROPEZA Not Available Start: 02-04-2024 End: 02-04-2024 ambulatory LAW OROPEZA Not Available Start: 02-04-2024 End: 02-04-2024 ambulatory LAW OROPEZA Not Available Start: 01-22-2024 End: 01-22-2024 ambulatory LAW OROPEZA Not Available Start: 12-04-2023 End: 12-04-2023 ambulatory BRAYDEN MANZANARES Not Available Start: 11-13-2023 End: 11-13-2023 ambulatory BRAYDEN MANZANARES Not Available Start: 01-11-2023 End: 01-12-[address] LAW OROPEZA Facility: Start: 08-17-2022 End: 08-18-[address] LAW OROPEZA Facility:[facility] Start: 07-13-2022 End: 07-14-[address] LAW OROPEZA Facility:[facility] Procedures Date Procedure Procedure Detail Performing Clinician Start: 09-24-2024 STATUS COVID-19/FLU Ant davis Leigh DO Work Phone: Start: 06-18-2024 ALL CBC WITH AUTO DIFF Law Oropeza DO Work Phone: Plan of Treatment Date Care Activity Detail Author Start: 07-15-2025 Medicare Annual Wellness (AWV) Medicare Annual Wellness (AWV) [facility] Start: 01-21-2025 End: 01-21-2025 Patient encounter procedure 01/21/2025 10:30 AM EDT Office Visit [facility] [address] [place] [id number] Law Oropeza DO [address] [place] [address] [facility] Start: 01-13-2025 End: 01-25-2025 Comprehensive metabolic 2000 panel - Serum or Plasma Comprehensive metabolic panel Lab Routine Essential hypertension ([facility]/HCC) Expected: 01/13/2025, Expires: 01/25/2025 [facility] Comment on above: Expected: 01/13/2025 , Expires: 01/25/2025 Start: 01-13-2025 End: 01-25-2025 Lipid 1996 panel - Serum or Plasma Lipid panel Lab Routine Mixed hyperlipidemia ([facility]/HCC) Expected: 01/13/2025, Expires: 01/25/2025 [facility] Comment on above: Expected: 01/13/2025 , Expires: 01/25/2025 Start: 12-22-2024 End: 06-24-2025 CBC W Auto Differential panel - Blood [facility] Work Phone: Comment on above: Expected: 12/22/2024 (Approximate), Expires: 06/24/2025 Start: 12-22-2024 End: 06-24-2025 Comprehensive metabolic 2000 panel - Serum or Plasma [facility] Comment on above: Expected: 12/22/2024 (Approximate), Expires: 06/24/2025 Start: 12-22-2024 End: 06-24-2025 Lipid 1996 panel - Serum or Plasma Lipid panel Lab Routine Mixed hyperlipidemia (CMS/HCC) Expected: 12/22/2024 (Approximate), Expires: 06/24/2025 [facility] Comment on above: Expected: 12/22/2024 (Approximate), Expires: 06/24/2025 Start: 12-22-2024 End: 06-24-2025 Thyrotropin [Units/volume] in Serum or Plasma [facility] Comment on above: Expected: 12/22/2024 (Approximate), Expires: 06/24/2025 Start: 10-28-2024 End: 10-28-2024 Patient encounter procedure [facility] Comment on above: Arrived Start: 09-30-2024 End: 09-30-2024 Patient encounter procedure 09/30/2024 10:30 AM EST Office Visit [facility] [address] [place] [id number] [facility] Start: 08-21-2024 End: 08-21-2024 Professional / ancillary services management [facility] DXA Start: 07-21-2024 End: 07-21-2024 Patient encounter procedure [facility] Comment on above: Arrived Start: 07-18-2024 Medicare Annual Wellness (AWV) Medicare Annual Wellness (AWV) [facility] Start: 07-15-2024 End: 10-15-2024 DBT Breast - bilateral screening Bilateral screening mammogram with tomosynthesis Imaging Routine Encounter for screening mammogram for malignant neoplasm of breast Expected: 07/15/2024 (Approximate), Expires: 10/15/2024 [facility] Work Phone: Comment on above: Expected: 07/15/2024 (Approximate), Expires: 10/15/2024 Start: 07-15-2024 End: 10-15-2024 DXA Skeletal system Views for bone density DEXA bone density Imaging Routine Postmenopausal Expected: 07/15/2024 (Approximate), Expires: 10/15/2024 [facility] Comment on above: Expected: 07/15/2024 (Approximate), Expires: 10/15/2024 Start: 07-15-2024 End: 07-15-2024 Patient encounter procedure [facility] Comment on above: Arrived Start: 06-24-2024 End: 06-24-2024 Patient encounter procedure 06/24/2024 8:45 AM EDT Office Visit [facility] [address] [place] [id number] Law Oropeza DO [address] [place] [address] [facility] Start: 06-14-2024 Influenza vaccination Influenza Vacc ine (#1) [facility] Immunizations Immunization Date Immunization Notes Care Provider Fa cility 06-24-2024 Seasonal trivalent influenza vaccine, adjuvanted, preservative free Law Oropeza DO Work Phone: [facility] 07-18-2023 Influenza, Seasonal, Quadrivalent, Adjuvanted Law Oropeza DO Work Phone: [facility] 07-18-2023 influenza virus vacc ine, unspecified formulation Law Oropeza DO Work Phone: [facility] 07-17-2022 influenza, high dose seasonal, preservative-free Law Oropeza DO Work Phone: [facility] 06-08-2022 tetanus toxoid, redu harman diphtheria toxoid, and acellular pertussis vaccine, adsorbed Law Oropeza DO Work Phone: [facility] 08-24-2021 zoster vaccine recombinant J karen Oropeza DO Work Phone: [facility] 08-08-2021 Moderna SARS-CoV-2 B ooster Vaccination Law Oropeza DO Work Phone: [facility] 07-17-2021 influenza, high dose seasonal, preservative-free Law Oropeza DO Work Phone: [facility] 06-12-2021 zoster vaccine recombinant J karen Oropeza DO Work Phone: [facility] 06-11-2021 zoster vaccine recombinant J karen Oropeza DO Work Phone: [facility] 11-28-2020 Pfizer Purple Cap SARS-CoV-2 Vaccination Law Oropeza DO Work Phone: [facility] 08-01-2020 Seasonal trivalent influenza vaccine, adjuvanted, preservative free Law Oropeza DO Work Phone: [facility] 07-14-2019 influenza, injectabl e, quadrivalent, preservative free Law Oropeza DO Work Phone: [facility] 08-11-2018 influenza, high dose seasonal, preservative-free Law Oropeza DO Work Phone: [facility] 08-11-2018 Seasonal trivalent influenza vaccine, adjuvanted, preservative free Law Oorpeza DO Work Phone: [facility] 07-19-2017 influenza, high dose seasonal, preservative-free Law Oropeza DO Work Phone: [facility] 07-19-2017 influenza, injectabl e, quadrivalent, preservative free Law Oropeza DO Work Phone: [facility] 08-01-2016 influenza, high dose seasonal, preservative-free Law Oropeza DO Work Phone: [facility] 07-14-2016 influenza, injectabl e, quadrivalent, preservative free Law Oropeza DO Work Phone: [facility] 07-14-2016 pneumococcal polysaccharide vaccine, 23 valent Law Johnna DO Work Phone: [facility] 10-27-2015 pneumococcal conjuga te vaccine, 13 valent Law Oropeza DO Work Phone: [facility] 07-13-2012 zoster vaccine, live Law Oropeza DO Work Phone: [facility] Payers Date Payer Category Payer [facility] [id number] 2019 Unknown BCBS BCBS xxxxxx [id number] 2019-Present [phone] [address] [place] [address] [id number] 2004 Medicare [id number] 1959 Medicare [id number] 1959 Unknown [id number] 1939 Unknown [id number] [id number] 79.2.593 1939 Unknown [id number] 2.16.840.1.849812.3.5 79.2.593 1939 Unknown [id number] 2.16.840.1.188759.3.5 79.2.593 1939 Unknown [id number] 2.16.840.1.107244.3.5 79.2.1259 1939 Unknown [id number] 2.16.840.1.214725.3.5 79.2.1259 1939 Unknown [id number] 2.16.840.1.669760.3.5 79.2.1259 1939 Unknown [id number] 2.16.840.1.066132.3.5 79.2.1259 1939 Unknown [id number] 2.16.840.1.192678.3.5 79.2.1259 1939 Unknown [id number] 2.16.840.1.656163.3.5 79.2.1259 1939 Unknown [id number] 2.16.840.1.144423.3.5 79.2.1259 1939 Unknown [id number] 2.16.840.1.316258.3.5 79.2.1259 1939 Unknown [id number] 2.16.840.1.080574.3.5 79.2.1259 1939 Unknown [id number] 2.16.840.1.330250.3.5 79.2.1259 1939 Unknown [id number] 2.16.840.1.237402.3.5 79.2.1259 1939 Unknown [id number] 2.16.840.1.464258.3.5 79.2.1259 1939 Unknown [id number] 2.16.840.1.016716.3.5 79.2.1259 1939 Unknown [id number] 2.16.840.1.387348.3.5 79.2.1259 1939 Unknown [id number] 2.16.840.1.449413.3.5 79.2.1259 Social History Date Type Detail Facility Start: 07-18-2023 End: 06-24-2024 Tobacco smoking status NYIS Ex-smoker [facility] are End: 10-14-1956 History of tobacco use Current smoker [facility] End: 10-14-1956 History of tobacco use Cigarette Smoker [facility] History of tobacco use Passive smoker [facility] Start: 07-18-2023 End: 06-24-2024 Tobacco use and exposure Smokeless tobacco non-user [facility] Start: 06-24-2024 End: 10-28-2024 Alcoholic beverage intake Current drinker of alcohol (finding) [facility] Start: 02-19-2024 End: 07-21-2024 History of Social function [facility] Start: 02-19-2024 End: 07-21-2024 Alcohol Use Disorder Identification Test - Consumption [AUDIT-C] [facility] How often to you hav e a drink containing alcohol? Never [facility] How many standard dr inks containing alcohol do you have on a typical day? Patient does not drink [facility] Start: 07-10-2023 Alcohol Comment Alcohol: 1 or 2 drinks on a typical day/monthly or less Caffeine: 1-2 cups/day [facility] Start: 1940 Sex assigned at Not on file [facility] [place] [place] [facility] Clinical Notes 06-24-2024 to 10-28-2024 rBayden Manzanares, DPM - 10/28/2024 1:00 PM Ofelia Singh NP - 09/30/2024 3:00 PM Kym Nelson, REYNA - 09/24/2024 3:10 PM ESTTelephone Encounter - Kaylie Raymond, JUDIT - 07/21/2024 4:04 PM EDT Note Date & Type Note Facility 10-28-2024 History of Presen t illness Narrative Images from the original note were not included. HPI: Patient presents today for routine toenail care. Patient sees Dr. Oropeza for her medical issues. Her last visit was on: 06/24/24. No other concerns. Exam: General Examination: GENERAL APPEARANCE: awake, aware of surroundings, in no acute distress FOOT EXAM: 10/28/24 Vascular: DORSALIS PEDIS PULSE: 2/4 bilateral POSTERIOR TIBIAL PULSE: 2/4 bilateral TEMPERATURE GRADIENT: warm to cool EDEMA: none CAPILLARY FILLING TIME(sec): capillary fill intact bilateral digits less than 3 secs Neurologic: VIBRATORY: decreased to the hallux IPJ bilateral SEMMES-RACHNA 5.07 MONOFILAMENT: intact to the plantar ball of the foot and heel Dermatologic: SKIN FINDINGS: dryness to the dorsal and plantar foot bilateral HYPERKERATOSIS: none NAIL PATHOLOGY: digits 1-5 bilateral are intact. Slight evidence of thickness along the left great toenail. There is incurvation noted to the medial and lateral borders of the left hallux nail but no evidence of erythema, hypertrophy of the nail fold or sign of infection. No pain with palpation along the medial or lateral nail fold left hallux SKIN PATHOLOGY: thin, decreased hair growth Nail Pathology: Left Foot: 1 (great toe): Long, Thick, Crumbly, Deformed, Discolored, Brittle, Dystrophic 2: Long, Thick, Crumbly, Deformed, Discolored, Brittle, Dystrophic 3: Long, Thick, Crumbly, Deformed, Discolored, Brittle, Dystrophic 4: Long, Thick, Crumbly, Deformed, Discolored, Brittle, Dystrophic 5: Long, Thick, Crumbly, Deformed, Discolored, Brittle, Dystrophic Nail Pathology: Right Foot: 1 (great toe): Long, Thick, Crumbly, Deformed, Discolored, Brittle, Dystrophic 2: Long, Thick, Crumbly, Deformed, Discolored, Brittle, Dystrophic 3: Long, Thick, Crumbly, Deformed, Discolored, Brittle, Dystrophic 4: Long, Thick, Crumbly, Deformed, Discolored, Brittle, Dystrophic 5: Long, Thick, Crumbly, Deformed, Discolored, Brittle, Dystrophic Orthopedic: FOOT MORPHOLOGY: neutral, slight cavus JOINT RANGE OF MOTION: without pain or crepitus to the bilateral ankle, subtalar joint and 1st MPJ DEFORMITIES: hammertoes 2,3 bilateral PAIN ELICITED WITH PALPATION OF: along the medial left hallux nail MUSCLE STRENGTH: 5/5 for all pedal groups tested Assessments: ICD B35.1 - Dermatophytosis of nail: ICD M79.672 - Pain in left foot: ICD M79.671 - Pain in right foot: Ingrown toenail Treatment Note: 1. All mycotic and/or dystrophic nails were debrided in length and thickness by manual and mechanical means. 2. Advised patient of proper foot care to prevent any future complications including daily monitoring of the feet. 3. RTC: 9-12 weeks or as needed if problems arise as patient would like to continue to come in for routine nail care appointments to prevent future pain and problems developing from the overgrowth of the toenails. documented in this encounter [facility] 09-30-2024 History of Presen t illness Narrative Images from the original note were not included. Subjective Patient ID: Keiry Dickerson (: 1940) is a 84 y.o. female who presents for Cough. HPI History of Present Illness The patient presents for evaluation of influenza. She was initially suspected to have pneumonia by her son, leading to a visit to urgent care on 09/24/2024. However, she was diagnosed with influenza instead. She was prescribed Tamiflu but no antibiotics. A chest x-ray was not performed during that visit. She reports a persistent sensation of fullness in her head and a cough. She does not have any allergies. She has been experiencing occasional productive coughs, but the volume of sputum is minimal. She describes her cough as hacking in nature. She also reports feeling weak and fatigued. She had an episode of walking pneumonia in 01/2024, which lasted for a month and required several doctor's appointments. During that time, she was treated with doxycycline, Medrol Dosepak, and codeine cough syrup, which did not provide significant relief. Tessalon Perles were more effective, and she continues to use them. She mentions that a doctor noted a heart murmur, which she has never had before. ALLERGIES The patient has no known allergies. Current Outpatient Medications Medication Instructions acetaminophen (TYLENOL) 500 mg, Every 8 hours PRN albuterol HFA 90 mcg/act inhaler 2 puffs, Every 6 hours PRN aspirin 81 mg, Every 24 hours atorvastatin (Lipitor) 20 MG tablet Oral, Nightly Calcium Citrate-Vitamin D (CALCIUM CITRATE PETITE/VIT D PO) 1 tablet, Every 24 hours doxycycline (VIBRAMYCIN) 100 mg, Oral, 2 times daily, Take with at least 8 ounces (large glass) of water, do not lie down for 30 minutes after Glucosamine 500 MG capsule 1 capsule, Every 24 hours hydrocortisone 2.5 % cream Topical, 2 times daily, to affected area ibandronate (BONIVA) 150 mg, Oral, Every 30 days, Take in morning with full glass of water on an empty stomach. No food, drink, meds, or lying down for 60 minutes after. magnesium oxide (MAG-OX) 400 mg, Every 24 hours methylPREDNISolone (Medrol Dospak) 4 MG tablets Take as directed on package. wwmbdugbqqmz-prfc-yfcqaocg-folic acid (Centrum Silver, geriatric,) tablet 1 tablet, Daily niacin 500 mg, Every 24 hours pramoxine-hydrocortisone, perianal, (Analpram HC) 2.5-1 % cream 1 application , Rectal, 3 times daily PRN rOPINIRole (REQUIP) 0.25 mg, Nightly PRN traZODone (DESYREL) 50 mg, Oral, Nightly PRN Allergies Allergen Reactions Sulfanilamide Unknown Patient Active Problem List Diagnosis Stage 3a chronic kidney disease (HCC) ([facility]) Essential hypertension ([facility]/HCC) Hemorrhoid Hyperlipidemia ([facility]/HCC) Osteoporosis ([facility]/HCC) Primary osteoarthritis involving multiple joints RLS (restless legs syndrome) Vitamin D deficiency Primary insomnia Review of Systems Constitutional: Positive for fatigue. Negative for chills and fever. HENT: Positive for congestion, postnasal drip and sinus pressure. Negative for sore throat and trouble swallowing. Respiratory: Positive for cough and shortness of breath. Negative for wheezing. Cardiovascular: Negative for chest pain, palpitations and leg swelling. Gastrointestinal: Negative for diarrhea, nausea and vomiting. Neurological: Negative for dizziness, light-headedness and headaches. Objective Vital signs: BP 136/74 (BP Location: Right arm, Patient Position: Sitting) Pulse 74 Resp 16 Ht 5' 5 Wt 165 lb SpO2 97% BMI 27.46 kg/m Recent Results (from the past 12 weeks) STATUS COVID-19/FLU Collection Time: 09/24/24 3:29 PM Result Value Ref Range FLU A positive FLU B negative SARS COV 2 RNA negative Physical Exam HENT: Head: Normocephalic. Nose: Congestion present. Mouth/Throat: Mouth: Mucous membranes are moist. Pharynx: Posterior oropharyngeal erythema present. Eyes: Pupils: Pupils are equal, round, and reactive to light. Cardiovascular: Rate and Rhythm: Normal rate and regular rhythm. Pulmonary: Effort: Pulmonary effort is normal. Breath sounds: Rhonchi (posterior bases-harsh cough) present. Skin: General: Skin is warm and dry. Neurological: Mental Status: She is alert and oriented to person, place, and time. Psychiatric: Mood and Affect: Mood normal. Assessment/Plan Assessment & Plan 1. Influenza. She was diagnosed with influenza one at urgent care on and was prescribed Tamiflu. She reports persistent symptoms, including a full head sensation and a cough. A prescription for doxycycline and Medrol Dosepak has been issued to [facility] in [place]. She is advised to commence the doxycycline regimen today, ensuring it is taken with food to mitigate potential gastrointestinal discomfort. The initiation of the steroid pack is scheduled for tomorrow. She is instructed to contact the office on Saturday morning if there is no improvement in her condition by then. 2. Heart murmur. A heart murmur was previously noted but is not currently audible. It is suspected that the recent illness may have caused a temporary strain on the heart. No further follow-up is required unless the murmur is detected again. Problem List Items Addressed This Visit None Visit Diagnoses Lower respiratory infection - Primary Relevant Medications doxycycline (Vibramycin) 100 MG capsule methylPREDNISolone (Medrol Dospak) 4 MG tablets Acute non-recurrent pansinusitis Relevant Medications doxycycline (Vibramycin) 100 MG capsule methylPREDNISolone (Medrol Dospak) 4 MG tablets Health Maintenance Topic Date Due Medicare Annual Wellness (AWV) 07/15/2025 Influenza Vaccine Completed Pneumococcal Vaccine: 65+ Years Completed Immunization History Administered Date(s) Administered Influenza, High Dose Seasonal, Preservative Free 08/01/2016, 07/19/2017, 08/11/2018, 07/17/2021, 07/17/2022 Influenza, Seasonal, Quadrivalent, Adjuvanted 07/18/2023 Influenza, injectable, quadrivalent, preservative free 07/14/2016, 07/19/2017, 07/14/2019 Influenza, trivalent, adjuvanted 08/11/2018, 08/01/2020, 06/24/2024 Moderna SARS-CoV-2 Booster Vaccination 08/08/2021 Moderna SARS-CoV-2 Vaccination 10/31/2020, 11/28/2020, 08/09/2021 Pfizer Purple Cap SARS-CoV-2 Vaccination 11/28/2020 Pneumococcal Conjugate PCV 13 10/27/2015 Pneumococcal Polysaccharide PPSV23 07/14/2016 SARS-COV-2 (COVID-19) vaccine, mRNA, spike protein, LNP, bivalent, PF 08/10/2022 Tdap 06/08/2022 Zoster, Recombinant 06/11/2021, 06/12/2021, 08/24/2021 Zoster, live 07/13/2012 -Patient's chronic conditions have been reviewed in preparation for this appointment. Protocols reviewed and updated. A collaborative plan of care has been created for pt regarding specific health concerns. Any barriers to care have been identified and addressed. Any part of this document that has been added/copied from other documents has been reviewed for accuracy and updated as appropriate at the time of the patient encounter. -Follow up for Next scheduled follow-up. Kavya Singh NP documented in this encounter [facility] 09-24-2024 History of Presen t illness Narrative Images from the original note were not included. [address], [address] [facility], [address] P: [phone] F: [phone] HPI Historian of HPI: patient Keiry Dickerson is a 84 y.o. female who presents today to the Urgent Care with the following complaints and denials which have been present for 2 day(s) C/O Denies Symptom Comments [x] [] Runny Nose [] [x] Difficulty Swallowing [] [x] Sore Throat [x] [] Cough Deep hard cough and dry, persistant [] [x] Ear Pain [] [x] Fever [x] [] Chills [x] [] Nasal Congestion [x] [] Myalgia [x] [] Sinus Pain LANDEROS [x] [] Sinus Pressure Additional Comments: pt has taken Tylenol, cough medicine OTC medication with relief ROS A complete system ROS was performed and negative aside from the pertinent positives noted in the HPI and PE. IH Testing: The following tests were performed Rapid Flu Test Rapid COVID Test SEE TEST(S) ORDERS FOR RESULTS PHYSICAL EXAM Examination General Examination: General Examination: alert, oriented, normal affect, well appearing, in no acute distress, well developed, well nourished Head: normocephalic, atraumatic Eyes: sclera non-icteric Ears: tympanic membrane intact, clear, auditory canal non inflamed, Bilateral A/F Levels Nose: congested with clear drainage. Oral Cavity: mucosa moist, no lesions Throat: PND noted Neck/Thyroid: no carotid bruit Lymph Nodes: no cervical adenopathy Heart: 1/6 systolic murmurs, regular rate and rhythm, S1, S2 normal Lungs: clear to auscultation bilaterally Extremities: no edema, no cyanosis Neurologic: alert and oriented Psych: alert, oriented, cognitive function intact, cooperative with exam In house covid testing negative. Flu A positive, Flu B Negative HPI, ROS, and PE reviewed and amended by Dr. Jenny Leigh as necessary. Written by TRISHA Rico TREATMENT PLAN 1. Influenza A (Primary) DX and TX discussed with pt and family. Take meds as directed. Push fluids. OTC Mucienx DM, tylenol and motrin as needed for pain. Follow with PCP as directed. To the ER for any worsening symptoms - oseltamivir (Tamiflu) 75 MG capsule; Take 1 capsule (75 mg) by mouth in the morning and 1 capsule (75 mg) before bedtime. Do all this for 5 days. Dispense: 10 capsule; Refill: 0 2. Acute cough Dx and tx reviewed - STATUS COVID-19/FLU documented in this encounter [facility] 07-21-2024 Telephone encount er Note Handicap placard printed and signature from Dr Oropeza [facility] 07-21-2024 Miscellaneous Notes Formattin g of this note might be different from the original. Handicap placard printed and signature from Dr Oropeza Pt came in and was inquiring about a handicap placard. She wasn't sure if she needed an appointment or if Johnna could prescribe her one. She mostly wants to use it when driving around her older sister. Please call with options documented in this encounter [facility] 07-21-2024 Telephone encount er Note Pt came in and was inquiring about a handicap placard. She wasn't sure if she needed an appointment or if Johnna could prescribe her one. She mostly wants to use it when driving around her older sister. Please call with options [facility] 07-21-2024 History of Presen t illness Narrative Images from the original note were not included. HPI: Patient presents today for routine toenail care. Patient sees Dr. Oropeza for her medical issues. Her last visit was on: 06/24/24. No other concerns. Exam: General Examination: GENERAL APPEARANCE: awake, aware of surroundings, in no acute distress FOOT EXAM: 07/21/24 Vascular: DORSALIS PEDIS PULSE: 2/4 bilateral POSTERIOR TIBIAL PULSE: 2/4 bilateral TEMPERATURE GRADIENT: warm to cool EDEMA: none CAPILLARY FILLING TIME(sec): capillary fill intact bilateral digits less than 3 secs Neurologic: VIBRATORY: decreased to the hallux IPJ bilateral SEMMES-RACHNA 5.07 MONOFILAMENT: intact to the plantar ball of the foot and heel Dermatologic: SKIN FINDINGS: dryness to the dorsal and plantar foot bilateral HYPERKERATOSIS: none NAIL PATHOLOGY: digits 1-5 bilateral are intact. Slight evidence of thickness along the left great toenail. There is incurvation noted to the medial and lateral borders of the left hallux nail but no evidence of erythema, hypertrophy of the nail fold or sign of infection. No pain with palpation along the medial or lateral nail fold left hallux SKIN PATHOLOGY: thin, decreased hair growth Nail Pathology: Left Foot: 1 (great toe): Long, Thick, Crumbly, Deformed, Discolored, Brittle, Dystrophic 2: Long, Thick, Crumbly, Deformed, Discolored, Brittle, Dystrophic 3: Long, Thick, Crumbly, Deformed, Discolored, Brittle, Dystrophic 4: Long, Thick, Crumbly, Deformed, Discolored, Brittle, Dystrophic 5: Long, Thick, Crumbly, Deformed, Discolored, Brittle, Dystrophic Nail Pathology: Right Foot: 1 (great toe): Long, Thick, Crumbly, Deformed, Discolored, Brittle, Dystrophic 2: Long, Thick, Crumbly, Deformed, Discolored, Brittle, Dystrophic 3: Long, Thick, Crumbly, Deformed, Discolored, Brittle, Dystrophic 4: Long, Thick, Crumbly, Deformed, Discolored, Brittle, Dystrophic 5: Long, Thick, Crumbly, Deformed, Discolored, Brittle, Dystrophic Orthopedic: FOOT MORPHOLOGY: neutral, slight cavus JOINT RANGE OF MOTION: without pain or crepitus to the bilateral ankle, subtalar joint and 1st MPJ DEFORMITIES: hammertoes 2,3 bilateral PAIN ELICITED WITH PALPATION OF: along the medial left hallux nail MUSCLE STRENGTH: 5/5 for all pedal groups tested Assessments: ICD B35.1 - Dermatophytosis of nail: ICD M79.672 - Pain in left foot: ICD M79.671 - Pain in right foot: Ingrown toenail Treatment Note: 1. All mycotic and/or dystrophic nails were debrided in length and thickness by manual and mechanical means. 2. Advised patient of proper foot care to prevent any future complications including daily monitoring of the feet. 3. RTC: 9-12 weeks or as needed if problems arise as patient would like to continue to come in for routine nail care appointments to prevent future pain and problems developing from the overgrowth of the toenails. documented in this encounter [facility] 07-15-2024 History of Presen t illness Narrative Images from the original note were not included. Keiry Dickerson is a 83 y.o. female presents with chief complaint of No chief complaint on file. HPI: HPI I have reviewed and reconciled the history and medication list with the patient today. Here for Medicare wellness examination. 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, right hand Vitamin D deficiency SURGICAL HISTORY: Past Surgical History: Procedure Laterality Date APPENDECTOMY 1960 BLADDER SUSPENSION 1979' SECTION, LOW TRANSVERSE 1964 COLONOSCOPY 05/25/2020 Normal VA DRAIN/INJECT LARGE JOINT/BURSA Arthrocentesis of the right shoulder joint 1969's TONSILLECTOMY childhood SOCIAL HISTORY: Social History Tobacco Use Smoking status: Former Current packs/day: 0.00 Types: Cigarettes Quit date: 10/14/1956 Years since quittin.7 Passive exposure: Past Smokeless tobacco: Never Substance Use Topics Alcohol use: Yes Comment: Alcohol: 1 or 2 drinks on a typical day/monthly or less Caffeine: 1-2 cups/day Drug use: Never Depression: Not on file FAMILY HISTORY: Family History Problem Relation Name Age of Onset Osteoporosis Mother No Known Problems Sister No Known Problems Son No Known Problems Son No Known Problems Daughter No Known Problems Daughter MEDICATIONS: Current Outpatient Medications Medication Instructions acetaminophen (TYLENOL) 500 mg, Oral, Every 8 hours PRN albuterol HFA 90 mcg/act inhaler 2 puffs, Inhalation, Every 6 hours PRN aspirin 81 mg, Oral, Every 24 hours atorvastatin (Lipitor) 20 MG tablet Oral, Nightly Calcium Citrate-Vitamin D (CALCIUM CITRATE PETITE/VIT D PO) 1 tablet, Oral, Every 24 hours Glucosamine 500 MG capsule 1 capsule, Oral, Every 24 hours hydrocortisone 2.5 % cream Topical, 2 times daily, to affected area magnesium oxide (MAG-OX) 400 mg, Oral, Every 24 hours zczbbpgofyxe-efoz-clnfgjpu-folic acid (Centrum Silver, geriatric,) tablet 1 tablet, Oral, Daily niacin 500 mg, Oral, Every 24 hours pramoxine-hydrocortisone, perianal, (Analpram HC) 2.5-1 % cream 1 application , Rectal, 3 times daily PRN rOPINIRole (REQUIP) 0.25 mg, Oral, Nightly PRN traZODone (DESYREL) 50 mg, Oral, Nightly PRN ALLERGIES: Allergies Allergen Reactions Sulfanilamide Unknown REVIEW OF SYMPTOMS: Review of Systems Constitutional: Negative for chills, diaphoresis, fatigue and fever. HENT: Negative for ear pain, hearing loss, sinus pressure, sore throat and trouble swallowing. Eyes: Negative for pain and discharge. Respiratory: Negative for cough and shortness of breath. Cardiovascular: Negative for chest pain, palpitations and leg swelling. Gastrointestinal: Negative for abdominal pain, blood in stool, constipation and diarrhea. Genitourinary: Negative for difficulty urinating. Musculoskeletal: Negative for arthralgias and gait problem. Skin: Negative for rash. Neurological: Negative for dizziness, light-headedness and headaches. Psychiatric/Behavioral: Negative for sleep disturbance. PHYSICAL EXAM: Visit Vitals Smoking Status Former BP Readings from Last 3 Encounters: 06/24/24 164/76 02/19/24 120/62 02/04/24 130/78 Wt Readings from Last 3 Encounters: 06/24/24 165 lb 8 oz 02/19/24 158 lb 02/04/24 159 lb Physical Exam Constitutional: General: She is not in acute distress. Appearance: Normal appearance. HENT: Head: Normocephalic. Eyes: Extraocular Movements: Extraocular movements intact. Neck: Vascular: No carotid bruit. Cardiovascular: Rate and Rhythm: Normal rate and regular rhythm. Heart sounds: Normal heart sounds. No murmur heard. Pulmonary: Effort: Pulmonary effort is normal. No respiratory distress. Breath sounds: Normal breath sounds. No wheezing, rhonchi or rales. Musculoskeletal: General: Normal range of motion. Cervical back: Normal range of motion. Skin: General: Skin is warm and dry. Neurological: Mental Status: She is alert and oriented to person, place, and time. Psychiatric: Mood and Affect: Mood normal. Thought Content: Thought content normal. Judgment: Judgment normal. ASSESSMENT AND PLAN: Assessment/Plan Diagnoses and all orders for this visit: Medicare annual wellness visit, subsequent -A wellness visit was completed with the patient today by Americo Leone NP. Demographics updated. The past medical history, family history, and social history reviewed and updated. The medication list (including supplements) has been reconciled. -A list of other providers involved with the patient's care and any durable medical goods providers documented. -Depression screening was completed and addressed as indicated. Cognitive function was assessed by direct observation and assessment of ability to perform ADLs and iADLs was done. As well as Mini-Cog assessment. -We reviewed, and discussed as indicated, safety issues, including falls risk assessment. -Time was spent reviewing and discussing age-appropriate screenings, immunizations and indicated laboratory monitoring. -We discussed Advanced Directives and code status and this information was updated in the chart. -BMI was assessed. Educational handout with tips for healthy diet, exercise and lifestyle modifications that will promote achieving or maintaining a healthy weight provided. The BMI will be monitored at routine office appointments as well . -Major risk factors for heart disease were identified and modifiable risk factors discussed. -A Care Plan ( Report card ) was provided to patient at the end of the appointment. Included in this is recommendations for when any testing or immunizations need to be repeated. ACP (advance care planning) -full code Encounter for screening mammogram for malignant neoplasm of breast - Bilateral screening mammogram with tomosynthesis; Future Postmenopausal - DEXA bone density; Future Mixed hyperlipidemia (CMS/HCC) - Lipid panel; Future Essential hypertension (CMS/HCC) - Comprehensive metabolic panel; Future Dictated, but not read Patient presents today for Medicare wellness visit. She is doing well. She had a routine visit a few weeks ago. She was able to draw a Clock and remember her three words. She denies falls or depression. She s able to get up from the chair without using the arms of the chair. She has a living will, and a healthcare, power of real estate attorney. She wishes to be a full code. She has done a cologuard in the past. She no longer needs colon cancer screenings. She is due for her mammogram and DEXA scan now, and will have that done. She s up-to-date on all of her vaccines. Her body mass index is satisfactory in less than 30. She ll return here in six months Or sooner, if needed for a routine visit. Dr. Oropeza was present in office suite today and is supervising patient care and available for consult. I'm following his plan of care for the above problems. Previous notes and plan were reviewed and followed. Americo Leone, MSN, [facility] documented in this encounter [facility] 06-24-2024 History of Presen t illness Narrative Images from the original note were not included. Keiry Dickerson is a 83 y.o. female presents with chief complaint of 4 month follow up (Patient presents today for a 4 month routine follow up. Labs are in chart for review. Denies any problems.) HPI: I have reviewed and reconciled the history and medication list with the patient today. 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 Primary osteoarthritis, right hand Vitamin D deficiency SURGICAL HISTORY: Past Surgical History: Procedure Laterality Date APPENDECTOMY 1960 BLADDER SUSPENSION 1979' SECTION, LOW TRANSVERSE 1964 COLONOSCOPY 05/25/2020 Normal VA DRAIN/INJECT LARGE JOINT/BURSA Arthrocentesis of the right shoulder joint 1970's TONSILLECTOMY childhood SOCIAL HISTORY: Social History Tobacco Use Smoking status: Former Current packs/day: 0.00 Types: Cigarettes Quit date: 10/14/1956 Years since quittin.7 Passive exposure: Past Smokeless tobacco: Never Substance Use Topics Alcohol use: Yes Comment: Alcohol: 1 or 2 drinks on a typical day/monthly or less Caffeine: 1-2 cups/day Drug use: Never Depression: Not on file FAMILY HISTORY: Family History Problem Relation Name Age of Onset Osteoporosis Mother No Known Problems Sister No Known Problems Son No Known Problems Son No Known Problems Daughter No Known Problems Daughter MEDICATIONS: Current Outpatient Medications Medication Instructions acetaminophen (TYLENOL) 500 mg, Oral, Every 8 hours PRN albuterol HFA 90 mcg/act inhaler 2 puffs, Inhalation, Every 6 hours PRN aspirin 81 mg, Oral, Every 24 hours atorvastatin (Lipitor) 20 MG tablet Oral, Nightly Calcium Citrate-Vitamin D (CALCIUM CITRATE PETITE/VIT D PO) 1 tablet, Oral, Every 24 hours Glucosamine 500 MG capsule 1 capsule, Oral, Every 24 hours hydrocortisone 2.5 % cream Topical, 2 times daily, to affected area magnesium oxide (MAG-OX) 400 mg, Oral, Every 24 hours rmavgkwywpln-hjqw-qkvvjnzk-folic acid (Centrum Silver, geriatric,) tablet 1 tablet, Oral, Daily niacin 500 mg, Oral, Every 24 hours pramoxine-hydrocortisone, perianal, (Analpram HC) 2.5-1 % cream 1 application , Rectal, 3 times daily PRN rOPINIRole (REQUIP) 0.25 mg, Oral, Nightly PRN traZODone (DESYREL) 50 mg, Oral, Nightly PRN ALLERGIES: Allergies Allergen Reactions Sulfanilamide Unknown REVIEW OF SYMPTOMS: The ROS was neg. No chest pain or dyspnea. Denies any GI issues. Weight stable. No swellng. Denies any issues with meds. PHYSICAL EXAM: Visit Vitals BP 164/76 (BP Location: Left arm, Patient Position: Sitting) Pulse 60 Wt 165 lb 8 oz SpO2 94% BMI 27.54 kg/m Smoking Status Former BSA 1.86 m BP Readings from Last 3 Encounters: 06/24/24 164/76 02/19/24 120/62 02/04/24 130/78 Wt Readings from Last 3 Encounters: 06/24/24 165 lb 8 oz 02/19/24 158 lb 02/04/24 159 lb Physical exam- No focal neuro signs. No enlarged Lymph Nodes, no thyromegaly/ nodules, HRRR, LCTA, benign ABD exam w/ no bruits. Carotid pulse wnl, no bruits. Pulses intact and palp in all extremities, no edema ASSESSMENT AND PLAN: Assessment/Plan Problem List Items Addressed This Visit Stage 3a chronic kidney disease (HCC) ([facility]/HCC) Hyperlipidemia (CMS/HCC) Osteoporosis ([facility]/HCC) Primary osteoarthritis involving multiple joints RLS (restless legs syndrome) - Primary Vitamin D deficiency Primary insomnia She has seen today for a routine check up. Actually feeling quite well. She walks about a mile a day. She s involved in a lot of activities and do some exercise classes. Cardio pulmonary, and G.I. review systems is negative. She s taking for chronic pain and her restless leg syndrome has been minimal recently, and she actually does not take the ropineral the daily basis. She is on trazodone at bedtime. Sleeping satisfactory. Blood pressure today was 136/68. The heart is regular. The lungs are clear. The carrots are clear. No edema. She s taking statin therapy for primary prevention and her LDL is well below 100. Renal function is satisfactory. Thyroid function is satisfactory and click. She appears normal thyroid on exam. Her DEXA scan two years ago was reviewed and she does have osteoporosis with a Negative, 2.5 in the right femur. She s on calcium and vitamin D but it s been off the Boniva now for a couple years, she s been on that therapy for quite a while and was given a hiatus. She has a slip for mammogram. She denies any breast tenderness or soreness.at this time no additional change in medication required. Flu shot given. Return to clinic at six months. This note was Dictated and not read. documented in this encounter [facility] Healthcare Evaluation note Diagnosis Medicare annual wellness visit, subsequent- Primary ACP (advance care planning) Other specified counseling Encounter for screening mammogram for malignant neoplasm of breast Postmenopausal Asymptomatic postmenopausal status (age-related) (natural) Mixed hyperlipidemia ([facility]/HCC) Mixed hyperlipidemia Essential hypertension ([facility]) Unspecified essential hypertension documented in this encounter [facility] HealthcareEvaluation note* Diagnosis Onychomycosis- Primary Dermatophytosis of nail Pain in both feet documented in this encounter [facility] HealthcareEvaluation note* Diagnosis 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 ([facility]) documented in this encounter [facility] HealthcareEvaluation note* Diagnosis Influenza A- Primary Influenza with other respiratory manifestations Acute cough documented in this encounter [facility] HealthcareEvaluation note* Diagnosis RLS (restless legs syndrome)- Primary Restless legs syndrome (RLS) Mixed hyperlipidemia ([facility]/HCC) Mixed hyperlipidemia Vitamin D deficiency Age-related osteoporosis without current pathological fracture ([facility]) Primary osteoarthritis involving multiple joints Stage 3a chronic kidney disease (HCC) ([facility]) Primary insomnia Persistent disorder of initiating or maintaining sleep Need for immunization against influenza Need for prophylactic vaccination and inoculation against influenza Essential hypertension ([facility]) Unspecified essential hypertension Other fatigue documented in this encounter [facility] HealthcareEvaluation note* Diagnosis Lower respiratory infection- Primary Other diseases of respiratory system, not elsewhere classified Acute non-recurrent pansinusitis documented in this encounter [facility] HealthcareEvaluation note* Diagnosis Onychomycosis- Primary Dermatophytosis of nail Pain in both feet documented in this encounter [facility] Healthcare Summary Purpose Family History No Family History Records FoundNo Family History Records FoundNo Family History Records Found Advance Directives No Advanced Directives Records Found Date Activated Date Inactivated Comments 07/18/2023 2:08 PM Date Activated Date Inactivated Comments 07/15/2024 11:01 AM Date Activated Date Inactivated Comments 07/18/2023 2:08 PM 07/15/2024 11:01 AM Additional Source Comments INFORMATION SOURCE (unrecogn ized section and content) DATE CREATED AUTHOR 05/29/2022 [facility] dical Specialist DATE CREATED AUTHOR AUTHOR'S ORGANIZ ATION 01/19/2023 [facility] DATE CREATED AUTHOR AUTHOR'S ORGANIZ ATION 10/31/2024 [facility] dical Specialists EPIC Care Teams (unrecognized sec tion and content) 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 Relationship Specialty Start Date End Date Law Oropeza DO [address] [place] [address] PCP - ACO Reach 03/07/23 Law Oropeza DO [address] [place] [address] PCP - General Internal Medicine 02/19/23 Dave Powers MD [address] [place] [address] Referring Physician Ophthalmology 07/18/23 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 Relationship Specialty Start Date End Date Law Oropeza DO [address] [place] [address] PCP - ACO Reach 03/07/23 Law Oropeza DO [address] [place] [address] PCP - General Internal Medicine 02/19/23 [place] [address] [place] [id number] Referring Physician Ophthalmology 07/18/23 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 Relationship Specialty Start Date End Date Law Oropeza DO [address] [place] [address] PCP - ACO Reach 03/07/23 Lwa Oropeza DO [address] [place] [address] PCP - General Internal Medicine 02/19/23 Dave Powers MD [address] [place] [address] Referring Physician Ophthalmology 07/18/23 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 Relationship Specialty Start Date End Date Law Oropeza DO [address] [facility] [address] [place] [address] PCP - ACO Reach 03/07/23 Law Oropeza DO [address] [address] PCP - General Internal Medicine 02/19/23 Dave Powers MD [address] [place] [id number] Referring Physician Ophthalmology 07/18/23 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 Relationship Specialty Start Date End Date Law Oropeza DO [address] [address] PCP - ACO Reach 03/07/23 Law Oropeza DO [address] [address] PCP - General Internal Medicine 02/19/23 Dave Powers MD [address] [place] [id number] Referring Physician Ophthalmology 07/18/23 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 Relationship Specialty Start Date End Date Law Oropeza DO [address] [facility] [address] [place] [address] PCP - ACO Reach 03/07/23 Law Oropeza DO [address] [facility] [address] [place] [address] PCP - General Internal Medicine 02/19/23 Dave Powers MD [address] [place] [address] Referring Physician Ophthalmology 07/18/23 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 Relationship Specialty Start Date End Date Law Oropeza DO [address] [place] [address] PCP - ACO Reach 03/07/23 Law Oropeza DO [address] [facility] [address] [place] [address] PCP - General Internal Medicine 02/19/23 Dave Powers MD [address] [place] [id number] Referring Physician Ophthalmology 07/18/23 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 Relationship Specialty Start Date End Date Law Oropeza DO [address] [facility] [address] [place] [address] PCP - ACO Reach 03/07/23 Law Oropeza DO [address] [facility] [address] [place] [address] PCP - General Internal Medicine 02/19/23 Dave Powers MD [address] [place] [id number] Referring Physician Ophthalmology 07/18/23 Reason for Visit (unrecogniz ed section and content) Reason Comments Cough Vomiting Headache Reason Comments 4 month follow up Patient presents tod ay for a 4 month routine follow up. Labs are in chart for review. Denies any problems. Reason Comments Cough FOR RECORDS PERTAINING TO PATIENTS WHO ARE OR HAVE BEEN ENROLLED IN A CHEMICAL DEPENDENCY/SUBSTANCEABUSE PROGRAM, SOME INFORMATION MAY BE OMITTED. This clinical summary was aggregated from multiple sources. Caution should be exercised in using it in the provision of clinical care. This summary normalizes information from multiple sources, and as a consequence, information in this document may materially change the coding, format and clinical context of patient data. In addition, data may be omitted in some cases. CLINICAL DECISIONS SHOULD BE BASED ON THE PRIMARY CLINICAL RECORDS. [facility]. provides no warranty or guarantee of the accuracy or completeness of information in this document.
[2025-01-13 09:32] LABS: Basophils Percent Auto 0.6 % (0.2-2.0); Eosinophils Absolute Auto 0.2 10^3/uL (0.0-0.7); Eosinophils Percent Auto 2.6 % (0.9-7.0); Hematocrit 44.1 % (36.0-48.0); Hemoglobin 14.8 g/dL (12.0-16.0); Immature Granulocytes Abs Auto 0.02 10^3/uL (0.00-0.03); Immature Granulocytes Pct Auto 0.3 % (0.0-0.5); Lymphocytes Absolute Auto 2.3 10^3/uL (1.2-3.8); Lymphocytes Percent Auto 37.3 % (20.5-60.0); Mean Corpuscular HGB Conc 33.6 g/dL (29.9-35.2); Mean Corpuscular Hemoglobin 30.3 pg (26.7-34.0); Mean Corpuscular Volume 90.4 fL (81.0-99.0); Mean Platelet Volume 10.4 fL (9.5-13.5); Monocytes Absolute Auto 0.5 10^3/uL (0.3-0.8); Monocytes Percent Auto 8.7 % (1.7-12.0); Neutrophils Absolute Auto 3.2 10^3/uL (1.4-6.5); Neutrophils Percent Auto 50.5 % (43.0-75.0); Platelet Count 170 10^3/uL (150-450); Red Blood Count 4.88 10^6/uL (4.20-5.40); Red Cell Distribution Width 12.8 % (11.0-15.0); White Blood Count 6.2 10^3/uL (4.0-11.0)
[2025-01-13 11:36] LABS: Anion Gap 15.1; Carbon Dioxide 26.2 mmol/L (21.0-32.0); Chloride 106 mmol/L (98-107); Potassium 4.3 mmol/L (3.5-5.1); Sodium 143 mmol/L (136-145)
[2025-01-13 11:37] LABS: Alanine Aminotransferase 27 U/L (14-59); Alkaline Phosphatase 72 U/L (46-116); Aspartate Amino Transferase 24 U/L (15-37); BUN Creatinine Ratio 16.3; Bilirubin Total 0.7 mg/dL (0.2-1.0); Calcium 9.7 mg/dL (8.5-10.1); Estimated GFR (African America >60 (>=60 mL/min/1.73m^2); Estimated GFR (Non-African Ame 58 (>=60 mL/min/1.73m^2); Glucose 103 mg/dL (74-106); Total Protein 7.5 g/dL (6.4-8.2)
[2025-01-13 11:38] LABS: Albumin Globulin Ratio 1.1; Albumin Level 3.9 g/dL (3.4-5.0); Chol HDL Ratio 2.5; Cholesterol 149 mg/dL (<=200); Globulin 3.6 g/dL; HDL Cholesterol 59 mg/dL (40-60); Thyroid Stimulating Hormone 2.307 uIU/mL (0.358-3.740); Triglycerides 142 mg/dL (<=150); VLDL CHOLESTEROL 28.4 mg/dL
== END 2025-01-13 09:02 | disposition home or self-care (01) ==
LOC: LAB 09:03
PROVIDERS: PCP Internal Medicine; Visit Provider Internal Medicine
DX: E78.2 Mixed hyperlipidemia (principal); I10 Essential (primary) hypertension; R53.83 Other fatigue
CPT/HCPCS: 36415; 80053; 80061; 84443; 85025

== ENCOUNTER 2025-07-23 09:01 | Outpatient (OUT) | payer MEDICARE, BC, SELFPAY ==
--- OUTSIDE RECORDS SUMMARY | 2025-07-23 09:07 | XMS_ITS | CCD ---
Author Organization [facility] Care Team Providers Care Soapstoner Name Role Phone DR LAW OROPEZA Primary Care Unavailable JOHNNA, DR FOY Consulting Unavailable JOHNNA, DR FOY Attending Unavailable JOHNNA, DR FOY Admitting Unavailable JOHNNA, DR FOY Primary Care Unavailable O[place]AN PARK, DR CAITIE Gordon Consulting Unavailable JOHNNA, DR FOY Attending Unavailable JOHNNA, DR FOY Admitting Unavailable JOHNNA, DR FOY Consulting Unavailable JOHNNA, DR FOY Primary Care Unavailable JOHNNA, DR FOY Consulting Unavailable JOHNNA, DR FOY Attending Unavailable JOHNNA, DR FOY Admitting Unavailable Law Oropeza DO Unavailable [phone] Law Oropeza DO Primary Care Provider [phone] Dave Powers MD Unavailable [phone] LAW OROPEZA Attending Unavailable BRAYDEN MANZANARES Attending Unavailable LAW OROPEZA Attending Unavailable LAW OROPEZA Referring Unavailable LAW OROPEZA Referring Unavailable AMERICO LEONE Attending Unavailable LAW OROPEZA Referring Unavailable KAVYA SINGH Attending Unavailable BRAYDEN MANZANARES Attending Unavailable BRAYDEN MANZANARES Attending Unavailable AMERICO LEONE Referring Unavailable AMERICO LEONE Referring Unavailable JENNY LEIGH Attending Unavailable LAW OROPEZA Referring Unavailable KAVYA SINGH Attending Unavailable BRAYDEN MANZANARES Attending Unavailable Allergies Allergy Classification Reported Allergen(s) Allergy Type Date of Onset Reaction(s) Facility (1 source) Sulfonamides (Antibiotic) Drug allergy (disorder) [facility] Repository (20 sources) Sulfanilamide Allergy to substance 3 Unknown [facility] Work Phone: Medications Current Medications Medication Drug Class(es) Dates Sig (Normalized) Sig (Original) acetaminophen 500 mg oral tablet (20 sources) take 1 tablet by mouth every eight hours as needed for pain acetaminophen (Tylenol) 500 MG tablet Take 500 mg by mouth every 8 (eight) hours if needed for mild pain Active albuterol 0.83 mg/ml inhalation solution (20 sources) beta2-Adrenergic Agonist Start: 01-23-2024 End: 06-24-2024 albuterol (2.5 MG/3ML) 0.083% nebulizer solution Indications: Mild intermittent reactive airway disease with acute exacerbation (CMS/HCC) Take 3 mL (2.5 mg) by nebulization 4 (four) times a day as needed for wheezing or shortness of breath 360 mL 3 01/23/2024 06/24/2024 Discontinued Start: 01-17-2024 End: 01-21-2025 take 2 puff(s) by inhalation every six hours albuterol HFA 90 mcg/act inhaler Inhale 2 puffs every 6 (six) hours if needed 01/17/2024 01/21/2025 Discontinued (Therapy completed) amoxicillin 875 mg / clavulanate 125 mg oral tablet (2 sources) Penicillin-class Antibacterial Start: 03-23-2025 End: 03-30-2025 take 1 tablet by mouth in the morning amoxicillin-clavulanate (Augmentin) 875-125 MG tablet Indications: Acute non-recurrent pansinusitis Take 1 tablet (875 mg) by mouth in the morning and 1 tablet (875 mg) before bedtime. Do all this for 7 days. 14 tablet 03/23/2025 03/30/2025 Active aspirin 81 mg delayed release oral tablet (20 sources) Platelet Aggregation Inhibitor, Nonsteroidal Anti-inflammatory Drug take 1 tablet by mouth once daily aspirin 81 MG EC tablet Take 81 mg by mouth 1 (one) time each day at the same time Active atorvastatin 20 mg oral tablet (20 sources) HMG-CoA Reductase Inhibitor Start: 03-26-2025 take 1 tablet by mouth at bedtime atorvastatin (Lipitor) 20 MG tablet Indications: Mixed hyperlipidemia TAKE 1 TABLET BY MOUTH AT BEDTIME 90 tablet 3 03/26/2025 Active Start: 05-12-2024 take 1 tablet by jeimy th at bedtime atorvastatin (Lipitor) 20 MG tablet Indications: Mixed hyperlipidemia (CMS/HCC) TAKE 1 TABLET BY MOUTH AT BEDTIME 90 tablet 3 05/12/2024 Active benzonatate 200 mg oral capsule (2 sources) Non-narcotic Antitussive Start: 03-23-2025 End: 03-30-2025 take 1 capsule by mouth three times daily as needed for cough benzonatate (Tessalon) 200 MG capsule Indications: Acute cough Take 1 capsule (200 mg) by mouth 3 (three) times a day as needed for cough for up to 7 days Do not crush or chew. 20 capsule 03/23/2025 03/30/2025 Active Calcium Citrate / Vitamin D (20 sources) take 1 tablet by mouth once daily Calcium Citrate-Vitamin D (CALCIUM CITRATE PETITE/VIT D PO) Take 1 tablet by mouth 1 (one) time each day at the same time Active take 1 tablet by mouth once olya y Calcium Citrate-Vitamin D (CALCIUM CITRATE PETITE/VIT D PO) Take 1 tablet by mouth 1 (one) time each day at the same time. Active doxycycline hyclate 100 mg oral capsule (2 sources) Tetracycline-class Drug Start: 09-30-2024 End: 10-07-2024 doxycycline (Vibramycin) 100 MG capsule Indications: Lower [...] Active glucosamine sulfate 500 mg oral capsule (20 sources) take 1 capsule by mouth once daily Glucosamine 500 MG capsule Take 1 capsule by mouth 1 (one) time each day at the same time Active hydrocortisone 25 mg/ml topical cream (20 sources) Corticosteroid Start: 03-10-2024 hydrocortisone 2.5 % cream Indications: Rash APPLY TO AFFECTED AREA TWICE A DAY 28.35 g 2 03/10/2024 Active hydrocortisone acetate 25 mg/ml / pramoxine hydrochloride 10 mg/ml rectal cream (20 sources) Corticosteroid Start: 07-18-2023 pramoxine-hydrocorti sone, perianal, (Analpram HC) 2.5-1 % cream Indications: Hemorrhoids, unspecified hemorrhoid type Insert 1 application into the rectum 3 (three) times a day as needed for hemorrhoids. 30 g 1 07/18/2023 Active ibandronic acid 150 mg oral tablet (15 sources) Bisphosphonate Start: 08-24-2024 End: 08-24-2025 take 1 tablet by mouth every 30 days in the morning ibandronate (Boniva) 150 MG tablet Indications: Other osteoporosis without current pathological fracture Take 1 tablet (150 mg) by mouth every 30 (thirty) days Take in morning with full glass of water on an empty stomach. No food, drink, meds, or lying down for 60 minutes after. 12 tablet 08/24/2024 08/24/2025 Active magnesium oxide 400 mg oral tablet (20 sources) take 1 tablet by mouth once daily magnesium oxide (Mag-Ox) 400 MG tablet Take 400 mg by mouth 1 (one) time each day at the same time Active methylPREDNISolone (2 sources) Corticosteroid Start: 09-30-2024 End: 10-07-2024 methylPREDNISolone (Medrol Dospak) 4 MG tablets Indications: Lower respiratory infection , Acute non-recurrent pansinusitis Take as directed on package. 21 tablet 09/30/2024 10/07/2024 Active cvaglipzmwjj-cgfz-dop erals-folic acid (Centrum Silver, geriatric,) tablet (20 sources) take 1 tablet by mouth once daily sjqsyaupiyhr-rknx-vp nerals-folic acid (Centrum Silver, geriatric,) tablet Take 1 tablet by mouth Daily Active take 1 tablet by jeimy th in the morning cpnrtncumgtc-eoks-msdiqsqt-folic acid (C entrum Silver, geriatric,) tablet Take 1 tablet by mouth in the morning. Active niacin 500 mg oral tablet (20 sources) Nicotinic Acid take 1 tablet by mouth once daily niacin 500 MG tablet Take 500 mg by mouth 1 (one) time each day at the same time Active oseltamivir 75 mg oral capsule (2 sources) Neuraminidase Inhibitor Start: 09-24-20 End: 09-29-20 24 take 1 capsule by mouth in the morning oseltamivir (Tamiflu) 75 MG capsule Indications: Influenza A Take 1 capsule (75 mg) by mouth in the morning and 1 capsule (75 mg) before bedtime. Do all this for 5 days. 10 capsule 09/24/2024 09/29/2024 Active rOPINIRole 0.25 mg oral tablet (20 sources) Nonergot Dopamine Agonist rOPINIRole (Requip) 0.25 MG tablet Take 0.25 mg by mouth as needed at bedtime Active traZODone hydrochloride 50 mg oral tablet (18 sources) Serotonin Reuptake Inhibitor Start: 07-18-20 End: 01-22-20 25 traZODone (Desyrel) 50 MG tablet Indications: Primary insomnia Take 1 tablet (50 mg) by mouth as needed at bedtime for sleep. 30 tablet 4 07/18/2023 01/21/2025 Discontinued (Therapy completed) Problems Active Problems Problem Classification Problem Date Documented Da te Episodic/Chronic Administrative/social admission (4 sources) Patient encounter status; Translations: [Other specified counseling] 07-15-2024 Episodic Asthma (1 source) Exacerbation of moderate persistent asthma; Translations: [Moderate persistent asthma with (acute) exacerbation] 07-21-2024 Chronic Chronic kidney disease (20 sources) Chronic kidney disease stage 3A ; Translations: [Stage 3a chronic kidney disease (HCC)] Onset: 05-27-2023 02-19-2024 Chronic Disorders of lipid metabolism (20 sources) Pure hypercholesterolemia , unspecified; Translations: [Hyperlipidemia] Onset: 01-11-2023 Chronic Essential hypertension (20 sources) Essential (primary) hypertension; Translations: [Essential hypertension] Onset: 01-18-2023 05-27-2023 Chronic Influenza (2 sources) Influenza due to Influenza A virus; Translations: [Influenza due to other identified influenza virus with other respiratory manifestations] 09-24-2024 Episodic Malaise and fatigue (4 sources) Chronic fatigue, unspecified; Translations: [CHRONIC FATIGUE UNSPECIFIED] Onset: 07-13-2022 Chronic Miscellaneous mental health disorders (20 sources) Primary insomnia; Translations: [Primary insomnia] Onset: 07-18-2023 07-18-2023 Chronic Mycoses (4 sources) Onychomycosis; Translations: [Tinea unguium] 07-21-2024 Episodic Nutritional deficiencies (20 sources) Vitamin D deficiency; Translations: [Vitamin D deficiency, unspecified] Onset: 05-27-2023 05-27-2023 Chronic Osteoarthritis (20 sources) Degenerative joint disease involving multiple joints; Translations: [Primary generalized (osteo)arthritis] Onset: 05-27-2023 Resolved: 06-24-2024 05-27-2023 Chronic Osteoporosis (20 sources) Age-related osteoporosis without current pathological fracture; Translations: [Osteoporosis] Onset: 08-23-2022 05-27-2023 Chronic Other aftercare (1 source) Other prison (current) drug therapy; Translations: [OTH 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 CURRENT DRUG THERAPY] Onset: 01-18-2023 Episodic Other connective tissue disease (4 sources) Pain in both feet; Translations: [Pain in right foot] 07-21-2024 Episodic Other gastrointestinal disorders (10 sources) Chronic idiopathic constipation; Translations: [Chronic idiopathic constipation] Onset: 01-21-2025 01-21-2025 Chronic Other hereditary and degenerative nervous system conditions (20 sources) Restless legs; Translations: [Restless legs syndrome] Onset: 05-27-2023 05-27-2023 Chronic Other lower respiratory disease (4 sources) Cough; Translations: [Acute cough] 09-24-2024 Episodic Other lower respiratory disease (2 sources) Lower respiratory tract infection; Translations: [Unspecified acute lower respiratory infection] 09-30-2024 Episodic Other nervous system disorders (20 sources) Chronic pain; Translations: [Other chronic pain] Onset: 05-27-2023 Resolved: 06-24-2024 06-24-2024 Chronic Other upper respiratory infections (4 sources) Acute pansinusitis; Translations: [Acute pansinusitis, unspecified] 09-30-2024 Episodic Residual codes; unclassified (2 sources) Postmenopausal state; Translations: [Asymptomatic menopausal state] 07-15-2024 Episodic Past or Other Problems Problem Classification Problem Date Documented Da te Episodic/Chronic Hemorrhoids (20 sources) Hemorrhoids; Translations: [Unspecified hemorrhoids] Onset: 05-27-2023 05-27-2023 Episodic Immunizations and screening for infectious disease (2 sources) Needs influenza immunization; Translations: [Encounter for immunization] 06-24-2024 Episodic Malaise and fatigue (20 sources) Fatigue; Translations: [Other fatigue] Onset: 02-04-2024 Resolved: 02-04-2024 02-04-2024 Episodic Other connective tissue disease (10 sources) Trochanteric bursitis of left hip; Translations: [Trochanteric bursitis, left hip] Onset: 01-21-2025 01-21-2025 Episodic Residual codes; unclassified (4 sources) Asymptomatic menopausal state; Translations: [ASYMPTOMATIC MENOPAUSAL STATE] Onset: 08-17-2022 Episodic Results Test Name Value Interpretation Reference Range Facility ALL CBC WITH AUTO DIFFon BASOPHILS ABSOLUTE AUTO 0 [facility] Basophils/100 WBC (Bld) 0.6 % 0.2 - 2.0 % [facility] Eosinophils/100 WBC (Bld) 2.6 % 0.9 - 7.0 % [facility] Erythrocyte distribution width (RBC) [Ratio] 12.8 % 11.0 - 15.0 % [facility] Hematocrit (Bld) [Volume fraction] 44.1 % 36.0 - 48.0 % [facility] Hemoglobin (Bld) [Mass/Vol] 14.8 g/dL 12.0 - 16.0 g/dL [facility] IMMATURE GRANULOCYTES ABS AUTO 0.02 [facility] Immature granulocytes/100 WBC (Bld) 0.3 % 0.0 - 0.5 % [facility] LYMPHOCYTES ABSOLUTE AUTO 2.3 [facility] Lymphocytes/100 WBC (Bld) 37.3 % 20.5 - 60.0 % [facility] MCH (RBC) [Entitic mass] 30.3 pg 26.7 - 34.0 pg [facility] MCHC (RBC) [Mass/Vol] 33.6 g/dL 29.9 - 35.2 g/dL [facility] MCV (RBC) [Entitic vol] 90.4 fL 81.0 - 99.0 fL [facility] MONOCYTES ABSOLUTE AUTO 0.5 [facility] Monocytes/100 WBC (Bld) 8.7 % 1.7 - 12.0 % [facility] NEUTROPHILS ABSOLUTE AUTO 3.2 [facility] Neutrophils/100 WBC (Bld) 50.5 % 43.0 - 75.0 % [facility] Platelet mean volume (Bld) [Entitic vol] 10.4 fL 9.5 - 13.5 fL [facility] TBH EO # 0.2 [facility]H PLT 170 [facility] TB RBC 4.88 [facility] TB WBC 6.2 [facility] - Microbiology an d Antimicrobial susceptibilityon 09-24-2024 SARS-CoV-2 (COVID-19) RNA REMI+probe Ql (Unsp spec) Negative [facility] No Panel Informationon 09-24 FLU A Positive [facility] FLU B Negative [facility] Interpretation and review of laboratory results Abnormal [facility] BI MAMMOGRAM SCREENING TOMOS YNTHESIS BILATERALon 08-21-2024 [...] WITH AUTO DIFFon BASOPHILS ABSOLUTE AUTO 0.0 [facility] Basophils/100 WBC (Bld) 0.8 % 0.2 - 2.0 % [facility] Eosinophils/100 WBC (Bld) 2.3 % 0.9 - 7.0 % [facility] Erythrocyte distribution width (RBC) [Ratio] 13.8 % 11.0 - 15.0 % [facility] Hematocrit (Bld) [Volume fraction] 44.4 % 36.0 - 48.0 % [facility] Hemoglobin (Bld) [Mass/Vol] 14.5 g/dL 12.0 - 16.0 g/dL [facility] IMMATURE GRANULOCYTES ABS AUTO 0.01 [facility] Immature granulocytes/100 WBC (Bld) 0.2 % 0.0 - 0.5 % [facility] LYMPHOCYTES ABSOLUTE AUTO 2.0 [facility] Lymphocytes/100 WBC (Bld) 38.9 % 20.5 - 60.0 % [facility] MCH (RBC) [Entitic mass] 29.0 pg 26.7 - 34.0 pg [facility] MCHC (RBC) [Mass/Vol] 32.7 g/dL 29.9 - 35.2 g/dL [facility] MCV (RBC) [Entitic vol] 88.8 fL 81.0 - 99.0 fL [facility] MONOCYTES ABSOLUTE AUTO 0.4 [facility] Monocytes/100 WBC (Bld) 8.3 % 1.7 - 12.0 % [facility] NEUTROPHILS ABSOLUTE AUTO 2.6 [facility] Neutrophils/100 WBC (Bld) 49.5 % 43.0 - 75.0 % [facility] Platelet mean volume (Bld) [Entitic vol] 10.0 fL 9.5 - 13.5 fL [facility] TBH EO # 0.1 [facility] TBH PLT 153 [facility] RBC 5.00 [facility] WBC 5.2 [facility] CBC AUTO DIFFon 01-11-2023 BASO # 0.1 103/ul Normal 0.0-0.1 [facility] Comment on above: Performed By: #### C BC #### [facility] [address] [place] [id number] Bill Moise Basophils/100 WBC (Bld) 0.8 % Normal 0.2-2.0 [facility] Comment on above: Performed By: #### C BC #### [facility] [address] [place], [place] [address] Dr. Bill Moise EO # 0.2 103/ul Normal 0.0-0.7 [facility] Comment on above: Performed By: #### C BC #### [facility] [address] [place] [address] Dr. Bill Moise Eosinophils/100 WBC (Bld) 2.6 % Normal 0.9-7.0 [facility] Comment on above: Performed By: #### C BC #### [facility] [address] [place] [address] Dr. Bill Moise Erythrocyte distribution width (RBC) [Ratio] 13.0 % Normal 11.0-15.0 [facility] Comment on above: Performed By: #### C BC #### [facility] [address] [place] [address] Dr. Bill Moise Hematocrit (Bld) [Volume fraction] 42.1 % Normal 36.0-48.0 [facility] Comment on above: Performed By: #### C BC #### [facility] [address] [place] [address] Dr. Bill Moise Hemoglobin (Bld) [Mass/Vol] 13.8 g/dL Normal 12.0-16.0 [facility] Comment on above: Performed By: #### C BC #### [facility] [address] [place] [address] Dr. Bill Moise IG # 0.02 10e3/ul Normal 0.00-0.03 [facility] Comment on above: Performed By: #### C BC #### [facility] [address] [place] [address] Dr. Bill Moise IG % 0.3 % Normal 0.0-0.5 [facility] Comment on above: Performed By: #### C BC #### [facility] [address] [place] [address] Dr. Bill Moise LYMPH # 1.6 103/ul Normal 1.2-3.8 [facility] Comment on above: Performed By: #### C BC #### [facility] [address] [place] [address] Dr. Bill Moise Lymphocytes/100 WBC (Bld) 25.2 % Normal 20.5-60.0 [facility] Comment on above: Performed By: #### C BC #### [facility] [address] [place] [address] Dr. Bill Moise MANUAL DIFF REQ NO Normal [facility] Comment on above: Performed By: #### C BC #### [facility] [address] [place] [address] Dr. Bill Moise MCH (RBC) [Entitic mass] 28.8 pg Normal 26.7-34.0 [facility] Comment on above: Performed By: #### C BC #### [facility] [address] [place] [address] Dr. Bill Moise MCHC (RBC) [Mass/Vol] 32.8 g/dL Normal 29.9-35.2 [facility] Comment on above: Performed By: #### C BC #### [facility] [address] [place] [address] Dr. Bill Moise MCV (RBC) [Entitic vol] 87.7 fL Normal 81.0-99.0 [facility] Comment on above: Performed By: #### C BC #### [facility] [address] [place] [address] Dr. Bill Moise MONO # 0.5 103/ul Normal 0.3-0.8 [facility] Comment on above: Performed By: #### C BC #### [facility] [address] [place] [address] Dr. Bill Moise Monocytes/100 WBC (Bld) 8.2 % Normal 1.7-12.0 [facility] Comment on above: Performed By: #### C BC #### [facility] [address] [place] [address] Dr. Bill Moise NEUT # 4.1 103/ul Normal 1.4-6.5 [facility] Comment on above: Performed By: #### C BC #### [facility] [address] [place] [address] Dr. Bill Moise Neutrophils/100 WBC (Bld) 62.9 % Normal 43.0-75.0 [facility] Comment on above: Performed By: #### C BC #### [facility] [address] [address] [address] Bill Moise Platelet mean volume (Bld) [Entitic vol] 9.9 fL Normal 9.5-13.5 [facility] Comment on above: Performed By: #### C BC #### [facility] [address] [address] [address] Bill Moise PLT 163 103/ul Normal 150-450 [facility] Comment on above: Performed By: #### C BC #### [facility] [address] [address] [address] Bill Moise RBC 4.80 106/ul Normal 4.20-5.40 [facility] Comment on above: Performed By: #### C BC #### [facility] [address] [place] [address] Dr. Bill Moise WBC 6.5 103/ul Normal 4.0-11.0 [facility] Comment on above: Performed By: #### C BC #### [facility] [address] [place] [address] Dr. Bill Moise LIPID PROFILEon 01-11-2023 CHOL-HDL RATIO NORM SEE BELOW Normal [facility] Comment on above: Result Comment: 3.3 - 4.4 LOW RISK 4.4 - 7.1 AVERAGE RISK 7.1 - 11.0 MODERATE RISK >11.0 HIGH RISK Performed By: #### L IPID, TSH, CMP #### [facility] [address] [address] [address] Bill Moise Cholesterol [Mass/Vol] 144 mg/dL Normal <=200 [facility] Comment on above: Performed By: #### L IPID, TSH, CMP #### [facility] [address] [place] [address] Dr. Bill Moise Cholesterol in HDL [Mass/Vol] 59 mg/dL Normal 40-60 [facility] Comment on above: Performed By: #### L IPID, TSH, CMP #### [facility] [address] [place] [address] Dr. Bill Moise Cholesterol in LDL [Mass/Vol] 69.8 mg/dL Normal [facility] Comment on above: Performed By: #### L IPID, TSH, CMP #### [facility] [address] [address] [address] Bill Moise Cholesterol.total/Ch olesterol in HDL [Mass ratio] 2.4 {ratio} Normal [facility] Comment on above: Performed By: #### L IPID, TSH, CMP #### [facility] [address] [address] [address] Bill Moise HDL NORMAL > or = 60 mg/dl - LO W CARDIOVASCULAR RISK <40 mg/dl - HIGH CARDIOVASCULAR RISK Normal [facility] Comment on above: Performed By: #### L IPID, TSH, CMP #### [facility] [address] [address] [address] Bill Moise LDL CALC NORMAL SEE BELOW Normal [facility] Comment on above: Result Comment: <100 mg/dl OPTIMAL 100 - 129 mg/dl NEAR OR ABOVE OPTIMAL 130 - 159 mg/dl BORDERLINE HIGH 160 - 189 mg/dl HIGH >190 mg/dl VERY HIGH Performed By: #### L IPID, TSH, CMP #### [facility] [address] [address] [address] Bill Moise Triglyceride [Mass/Vol] 76 mg/dL Normal <=150 [facility] Comment on above: Performed By: #### L IPID, TSH, CMP #### [facility] [address] [address] [address] Bill Moise VLDL CALC 15.2 mg/dL Normal [facility] Comment on above: Performed By: #### L IPID, TSH, CMP #### [facility] [address] [address] [address] Bill Moise PROF 14(COMP METB)on 023 Albumin [Mass/Vol] 3.6 g/dL Normal 3.4-5.0 [facility] Comment on above: Performed By: #### L IPID, TSH, CMP #### [facility] [address] [place] [address] Dr. Bill Moise Albumin/Globulin [Mass ratio] 1.1 {ratio} Normal [facility] Comment on above: Performed By: #### L IPID, TSH, CMP #### [facility] [address] [address] [address] Bill Moise ALP [Catalytic activity/Vol] 51 U/L Normal 46-116 [facility] Comment on above: Performed By: #### L IPID, TSH, CMP #### [facility] [address] [place] [address] Dr. Bill Moise ALT [Catalytic activity/Vol] 28 U/L Normal 14-59 [facility] Comment on above: Performed By: #### L IPID, TSH, CMP #### [facility] [address] [place] [address] Dr. Bill Moise Anion gap [Moles/Vol] 14.4 mmol/L Normal [facility] Comment on above: Performed By: #### L IPID, TSH, CMP #### [facility] [address] [place] [address] Dr. Bill Moise AST [Catalytic activity/Vol] 21 U/L Normal 15-37 [facility] Comment on above: Performed By: #### L IPID, TSH, CMP #### [facility] [address] [place] [address] Dr. Bill Moise Bilirubin [Mass/Vol] 0.9 mg/dL Normal 0.2-1.0 [facility] Comment on above: Performed By: #### L IPID, TSH, CMP #### [facility] [address] [place] [address] Dr. Bill Moise Calcium [Mass/Vol] 9.3 mg/dL Normal 8.5-10.1 [facility] Comment on above: Performed By: #### L IPID, TSH, CMP #### [facility] [address] [place] [address] Dr. Bill Moise Chloride [Moles/Vol] 106 mmol/L Normal 98-107 [facility] [facility] Comment on above: Performed By: #### L IPID, TSH, CMP #### [facility] [address] [address] [address] Bill Moise CO2 [Moles/Vol] 25.9 mmol/L Normal 21.0-32.[address] [facility] Comment on above: Performed By: #### L IPID, TSH, CMP #### [facility] [address] [address] [address] Bill Moise Creatinine [Mass/Vol] 0.87 mg/dL Normal 0.55-1.02 [facility] Comment on above: Performed By: #### L IPID, TSH, CMP #### [facility] [address] [address] [address] Bill Moise EGFR-AF PARAGUAYAN >60 Normal >=60 [facility] Comment on above: Performed By: #### L IPID, TSH, CMP #### [facility] [address] [place] [address] Dr. Bill Moise EGFR-NON AF PARAGUAYAN >60 Normal >=60 [facility] Comment on above: Performed By: #### L IPID, TSH, CMP #### [facility] [address] [address] [address] Bill Moise Globulin (S) [Mass/Vol] 3.3 g/dL Normal [facility] Comment on above: Performed By: #### L IPID, TSH, CMP #### [facility] [address] [address] [address] Bill Moise Glucose [Mass/Vol] 97 mg/dL Normal 74-[address] [facility] Comment on above: Performed By: #### L IPID, TSH, CMP #### [facility] [address] [address] [address] Bill Moise Potassium [Moles/Vol] 4.3 mmol/L Normal 3.5-5.1 [facility] Comment on above: Performed By: #### L IPID, TSH, CMP #### [facility] [address] [address] [address] iBll Moise Protein [Mass/Vol] 6.9 g/dL Normal 6.4-8.[address] [facility] Comment on above: Performed By: #### L IPID, TSH, CMP #### [facility] [address] [address] [address] Bill Moise Sodium [Moles/Vol] 142 mmol/L Normal 136-145 [facility] Comment on above: Performed By: #### L IPID, TSH, CMP #### [facility] [address] [address] [address] Bill Moise Urea nitrogen [Mass/Vol] 18.0 mg/dL Normal 7.0-18.0 [facility] Comment on above: Performed By: #### L IPID, TSH, CMP #### [facility] [address] [address] [address] Bill Moise Urea nitrogen/Creatinine [Mass ratio] 20.7 mg/mg Normal [facility] Comment on above: Performed By: #### L IPID, TSH, CMP #### [facility] [address] [place] [address] Dr. Bill Moise TSHon 01-11-2023 TSH 2.010 uIU/mL Normal 0.358-3.740 [facility] Comment on above: Performed By: #### L IPID, TSH, CMP #### [facility] [address] [place] [address] Dr. Blil Moise XR DEXA BONE DENSITYon 08-17 XR [...] by: CAITIE ROCHA Date: 2022-08-17 17:09 Normal [facility] LIPID PROFILEon 07-13-2022 CHOL-HDL RATIO NORM SEE BELOW Normal [facility] Comment on above: Result Comment: 3.3 - 4.4 LOW RISK 4.4 - 7.1 AVERAGE RISK 7.1 - 11.0 MODERATE RISK >11.0 HIGH RISK Performed By: #### L IPID, BMP #### [facility] [address] [address] [address] iBll Moise Cholesterol [Mass/Vol] 156 mg/dL Normal <=200 [facility] Comment on above: Performed By: #### L IPID, BMP #### [facility] [address] [address] [address] Bill Moise Cholesterol in HDL [Mass/Vol] 57 mg/dL Normal 40-60 [facility] Comment on above: Performed By: #### L IPID, BMP #### [facility] [address] [place] [address] Dr. Bill Moise Cholesterol in LDL [Mass/Vol] 77.8 mg/dL Normal [facility] Comment on above: Performed By: #### L IPID, BMP #### [facility] [address] [address] [address] Bill Moise Cholesterol.total/Ch olesterol in HDL [Mass ratio] 2.7 {ratio} Normal [facility] Comment on above: Performed By: #### L IPID, BMP #### [facility] [address] [place] [address] Dr. Bill Moise HDL NORMAL > or = 60 mg/dl - LO W CARDIOVASCULAR RISK <40 mg/dl - HIGH CARDIOVASCULAR RISK Normal [facility] Comment on above: Performed By: #### L IPID, BMP #### [facility] [address] [address] [address] Bill Moise LDL CALC NORMAL SEE BELOW Normal [facility] Comment on above: Result Comment: <100 mg/dl OPTIMAL 100 - 129 mg/dl NEAR OR ABOVE OPTIMAL 130 - 159 mg/dl BORDERLINE HIGH 160 - 189 mg/dl HIGH >190 mg/dl VERY HIGH Performed By: #### L IPID, BMP #### [facility] [address] [address] [address] Bill Moise Triglyceride [Mass/Vol] 106 mg/dL Normal <=150 [facility] Comment on above: Performed By: #### L IPID, BMP #### [facility] [address] [place] [address] Dr. Bill Moise VLDL CALC 21.2 mg/dL Normal [facility] Comment on above: Performed By: #### L IPID, BMP #### [facility] [address] [place] [address] Dr. Bill Moise PROF CHEM 8 (BAS METB)on Anion gap [Moles/Vol] 10.2 mmol/L Normal [facility] Comment on above: Performed By: #### L IPID, BMP #### [facility] [address] [place] [address] Dr. Bill Moise Calcium [Mass/Vol] 9.3 mg/dL Normal 8.5-10.1 [facility] Comment on above: Performed By: #### L IPID, BMP #### [facility] [address] [place] [address] Dr. Bill Moise Chloride [Moles/Vol] 105 mmol/L Normal 98-107 [facility] Comment on above: Performed By: #### L IPID, BMP #### [facility] [address] [place] [address] Dr. Bill Moise CO2 [Moles/Vol] 27.9 mmol/L Normal 21.0-32.[address] [facility] Comment on above: Performed By: #### L IPID, BMP #### [facility] [address] [place] [address] Dr. Bill Moise Creatinine [Mass/Vol] 0.97 mg/dL Normal 0.55-1.02 [facility] Comment on above: Performed By: #### L IPID, BMP #### [facility] [address] [place] [address] Dr. Bill Moise EGFR-AF PARAGUAYAN >60 Normal >=[address] [facility] Comment on above: Performed By: #### L IPID, BMP #### [facility] [address] [place] [address] Dr. Bill Moise EGFR-NON AF PARAGUAYAN 55 mL/min/1.73m2 Critically low >=60 [facility] Comment on above: Performed By: #### L IPID, BMP #### [facility] [address] [address] [address] Bill Moise Glucose [Mass/Vol] 101 mg/dL Normal 74-[address] [facility] Comment on above: Performed By: #### L IPID, BMP #### [facility] [address] [address] [address] Bill Moise Potassium [Moles/Vol] 4.1 mmol/L Normal 3.5-5.1 [facility] Comment on above: Performed By: #### L IPID, BMP #### [facility] [address] [place] [address] Dr. Bill Moise Sodium [Moles/Vol] 139 mmol/L Normal 136-[address] [facility] Comment on above: Performed By: #### L IPID, BMP #### [facility] [address] [place] [address] Dr. Bill Moise Urea nitrogen [Mass/Vol] 12.0 mg/dL Normal 7.0-18.0 [facility] Comment on above: Performed By: #### L IPID, BMP #### [facility] [address] [place] [address] Dr. Bill Moise Urea nitrogen/Creatinine [Mass ratio] 12.4 mg/mg Normal [facility] Comment on above: Performed By: #### L IPID, BMP #### [facility] [address] [place] [address] Dr. Bill Moise SCREENING MAMMOGRAM W/BOB, BILATERAL*on [...] VERY IMPORTANT TO YOUR HEALTH. THE CURRENT [place] [employer] GUIDELINES RECOMMEND ANNUAL MAMMOGRAPHY BEGINNING AT AGE 39. THIS FACILITY UTILIZES A REMINDER SYSTEM TO ENSURE ALL PATIENTS RECEIVE A REMINDER NOTIFICATION AT THE APPROPRIATE TIME BASED ON THE RECOMMENDATIONS OF THIS EXAM. 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 ACCREDITED BY THE [facility] AND FDA. Report reported and signed by Kinjal Watson on 05/28/2022 1443 Normal [facility] Vital Signs Date Time Vital Sign Value Performing Clinician Jordin freire 03-23-2025 13:47-0400 Diastolic blood pressure 60 mm[Hg] Kavya Raoion LABORATORY ANALYST Work Phone: [facility] 03-23-2025 13:47-0400 Heart rate 82 /min Kavya Raoion LABORATORY ANALYST Work Phone: [facility] 03-23-2025 13:47-0400 Respiratory rate 16 /min Kavya Raoion LABORATORY ANALYST Work Phone: [facility] 03-23-2025 13:47-0400 SaO2% (BldA) [Mass fraction] 96 % Kavya Raoion LABORATORY ANALYST Work Phone: [facility] 03-23-2025 13:47-0400 Systolic blood pressure 122 mm[Hg] Kavya Raoion LABORATORY ANALYST Work Phone: [facility] 01-21-2025 10:46-0400 Body mass index (BMI) [Ratio] 28.29 kg/m2 Law Oropeza DO Work Phone: [facility] 01-21-2025 10:46-0400 Body weight 77.11 kg Law Oropeza DO Work Phone: [facility] 01-21-2025 10:46-0400 Diastolic blood pressure 60 mm[Hg] Law Oropeza DO Work Phone: [facility] 01-21-2025 10:46-0400 Heart rate 64 /min Law Oropeza DO Work Phone: [facility] 01-21-2025 10:46-0400 SaO2% (BldA) [Mass fraction] 94 % Law Oropeza DO Work Phone: [facility] 01-21-2025 10:46-0400 Systolic blood pressure 122 mm[Hg] Law Oropeza DO Work Phone: [facility] 09-30-2024 15:02-0500 Body height 165.1 cm Kavya Didion LABORATORY ANALYST Work Phone: [facility] 09-30-2024 15:02-0500 Body mass index (BMI) [Ratio] 27.46 kg/m2 Kavya Didion LABORATORY ANALYST Work Phone: [facility] 09-30-2024 15:02-0500 Body weight 74.84 kg Kavya Didion LABORATORY ANALYST Work Phone: [facility] 09-30-2024 15:02-0500 Diastolic blood pressure 74 mm[Hg] Kavya Didion LABORATORY ANALYST Work Phone: [facility] 09-30-2024 15:02-0500 Heart rate 74 /min Kavya Didion LABORATORY ANALYST Work Phone: [facility] 09-30-2024 15:02-0500 Respiratory rate 16 /min Kavya Didion LABORATORY ANALYST Work Phone: [facility] 09-30-2024 15:02-0500 SaO2% (BldA) [Mass fraction] 97 % Kavya Didion LABORATORY ANALYST Work Phone: [facility] 09-30-2024 15:02-0500 Systolic blood pressure 136 mm[Hg] Kavya Didion LABORATORY ANALYST Work Phone: [facility] 09-24-2024 15:17-0500 Body mass index (BMI) [Ratio] 27.46 kg/m2 Jenny Leigh DO Work Phone: [facility] 09-24-2024 15:17-0500 Body temperature 97.59 [degF] Jenny Leigh DO Work Phone: [facility] 09-24-2024 15:17-0500 Body weight 74.84 kg Jenny Leigh DO Work Phone: [facility] 09-24-2024 15:17-0500 Diastolic blood pressure 68 mm[Hg] Jenny Leigh DO Work Phone: [facility] 09-24-2024 15:17-0500 Heart rate 97 /min Jenny Leigh DO Work Phone: [facility] 09-24-2024 15:17-0500 SaO2% (BldA) [Mass fraction] 91 % eJnny Leigh DO Work Phone: [facility] 09-24-2024 15:17-0500 Systolic blood pressure 122 mm[Hg] Jenny Leigh DO Work Phone: [facility] 06-24-2024 08:58-0400 Body mass index (BMI) [Ratio] 27.54 kg/m2 Lawdeepak Oropeza DO Work Phone: [facility] 06-24-2024 08:58-0400 Body weight 75.07 kg Lawdeepak Oropeza DO Work Phone: [facility] 06-24-2024 08:58-0400 Diastolic blood pressure 76 mm[Hg] Law Oropeza Work Phone: [facility] 06-24-2024 08:58-0400 Heart rate 60 /min Lawdeepak Oropeza DO Work Phone: [facility] 06-24-2024 08:58-0400 SaO2% (BldA) [Mass fraction] 94 % Law Johnna YODER Work Phone: [facility] 06-24-2024 08:58-0400 Systolic blood pressure 164 mm[Hg] Law Oropeza Work Phone: [facility] Healthcare Encounters Encounter Date Encounter Type Care Provider Facility Start: 04-28-2025 End: 04-28-2025 Bamboo flowsfiona Manzanares DPM Work Phone: [facility] Start: 04-28-2025 End: 04-28-2025 Bamboo flowsheet Brayden Manzanares DPM Work Phone: [facility] Start: 04-28-2025 End: 04-28-2025 Patient encounter procedure Brayden Manzanares DPM Work Phone: [facility] Comment on above: Onychomycosis (Prima ry Dx); Pain in both feet Start: 04-28-2025 End: 04-28-2025 ambulatory BRAYDEN MANZANARES Not Available Start: 03-23-2025 End: 03-23-2025 Office outpatient visit 15 minutes Kavya Singh LABORATORY ANALYST Work Phone: [facility] Comment on above: Acute non-recurrent pansinusitis (Primary Dx); Acute cough Start: 03-23-2025 End: 03-23-2025 ambulatory LAW OROPEZA Not Available Start: 01-27-2025 End: 01-27-2025 Bamboo flowsheet Brayden Manzanares DPM Work Phone: [facility] Start: 01-27-2025 End: 01-27-2025 Bamboo flowsheet Brayden Manzanares DPM Work Phone: [facility] Start: 01-27-2025 End: 01-27-2025 Patient encounter procedure Brayden Manzanares DPM Work Phone: [facility] Comment on above: Onychomycosis (Prima ry Dx); Pain in both feet Start: 01-27-2025 End: 01-27-2025 ambulatory BRAYDEN MANZANARES Not Available Start: 01-21-2025 End: 01-21-2025 Office outpatient visit 40 minutes Law Oropeza DO Work Phone: [facility] Comment on above: RLS (restless legs s yndrome) (Primary Dx); Chronic kidney disease, stage 3a (HCC) (CMS/HCC); Essential hypertension (CMS/HCC); Stage 3a chronic kidney disease (HCC) ([facility]/HCC); Primary osteoarthritis involving multiple joints; Vitamin D deficiency; Mixed hyperlipidemia (CMS/HCC); Trochanteric bursitis of left hip; Chronic idiopathic constipation Start: 01-21-2025 End: 01-21-2025 ambulatory LAW OROPEZA Not Available Start: 01-13-2025 End: 01-13-2025 Clinisync Result Encounter Law Oropeza DO Work Phone: [facility] External Department Unsolicited Start: 01-13-2025 End: 01-13-2025 Clinisync Result Encounter Law Oropeza DO Work Phone: [facility] External Department Unsolicited Start: 10-28-2024 End: 10-28-2024 Bamboo flowsheet Brayden Manzanares DPM Work Phone: [facility] Start: 10-28-2024 End: 10-28-2024 Bamboo flowsheet Brayden Manzanares DPM Work Phone: [facility] Start: 10-28-2024 End: 10-28-2024 Patient encounter procedure Brayden Manzanares DPM Work Phone: [facility] Comment on above: Onychomycosis (Prima ry Dx); Pain in both feet Start: 10-28-2024 End: 10-28-2024 ambulatory BRAYDEN MANZANARES Not Available Start: 09-30-2024 End: 09-30-2024 Office outpatient visit 15 minutes Kavya Singh LABORATORY ANALYST Work Phone: [facility] Comment on above: Lower respiratory in fection (Primary Dx); Acute non-recurrent pansinusitis Start: 09-30-2024 End: 09-30-2024 ambulatory LAW OROPEZA Not Available Start: 09-24-2024 End: 09-24-2024 ambulatory JENNY LEIGH Not Available Start: 09-24-2024 End: 09-24-2024 Office outpatient visit 25 minutes Jenny Leigh DO Work Phone: [facility] Comment on above: Influenza A (Primary Dx); Acute cough Start: 08-21-2024 End: 08-21-2024 ambulatory AMERICO LEONE Not Available Start: 07-21-2024 End: 07-21-2024 Patient encounter procedure Brayden Manzanares DPM Work Phone: [facility] Comment on above: Onychomycosis (Prima ry Dx); Pain in both feet Start: 07-21-2024 End: 07-21-2024 ambulatory BRAYDEN MANZANARES Not Available Start: 07-21-2024 End: 07-21-2024 Bamboo flowsheet Brayden Manzanares DPM Work Phone: [facility] Start: 07-21-2024 End: 07-21-2024 Bamboo flowsheet Brayden Manzanares DPM Work Phone: [facility] Start: 07-21-2024 End: 07-28-2024 Telephone encounter Law Oropeza DO Work Phone: [facility] Start: 07-15-2024 End: 07-15-2024 Bamboo flowsheet Law Oropeza DO Work Phone: [facility] Start: 07-15-2024 End: 07-15-2024 Bamboo flowsheet Law Oropeza DO Work Phone: [facility] Start: 07-15-2024 End: 07-15-2024 Patient encounter procedure Americo Leone LABORATORY ANALYST Work Phone: [facility] Comment on above: Medicare annual well [...] 25 minutes Law Oropeza DO Work Phone: [facility] Comment on above: RLS (restless legs s yndrome) (Primary Dx); Mixed hyperlipidemia (CMS/HCC); Vitamin D deficiency; Age-related osteoporosis without current pathological fracture (CMS/HCC); Primary osteoarthritis involving multiple joints; Stage 3a chronic kidney disease (HCC) (CMS/HCC); Primary insomnia; Need for immunization against influenza; Essential hypertension (CMS/HCC); Other fatigue Start: 06-18-2024 End: 06-18-2024 Clinisync Result Encounter Law Oropeza DO Work Phone: [facility] External Department Unsolicited Start: 06-18-2024 End: 06-18-2024 Clinisync Result Encounter Law Oropeza DO Work Phone: [facility] External Department Unsolicited Start: 01-11-2023 End: 01-12-[address] LAW OROPEZA Facility:[facility] Start: 08-17-2022 End: 08-18-[address] LAW OROPEZA Facility:[facility] Start: 07-13-2022 End: 07-14-[address] LAW OROPEZA Facility:[facility] Procedures Date Procedure Procedure Detail Performing Clinician Start: 01-13-2025 ALL CBC WITH AUTO DIFF Law Oropeza DO Work Phone: Start: 09-24-2024 STATUS COVID-19/FLU Ant gerardo Clare Leigh DO Work Phone: Start: 06-18-2024 ALL CBC WITH AUTO DIFF Law Oropeza DO Work Phone: Plan of Treatment Date Care Activity Detail Author Start: 08-04-2025 End: 08-04-2025 Patient encounter procedure 08/04/2025 1:00 PM EDT Procedure Visit [facility] [address] [place] [address] Brayden Manzanares DPM [address] [place] [address] [facility] Start: 07-28-2025 End: 07-28-2025 Patient encounter procedure 07/28/2025 10:45 AM EDT Office Visit [facility] [address] [place] [address] Law Oropeza, DO [address] [place] [address] [facility] Start: 07-15-2025 Medicare Annual Wellness (AWV) Medicare Annual Wellness (AWV) [facility] Start: 06-14-2025 Influenza vaccination Influenza Vacc ine (#1) [facility] Start: 04-28-2025 End: 04-28-2025 [facility] Comment on above: Arrived Start: 01-27-2025 End: 01-27-2025 Patient encounter [facility] Comment on above: Arrived Start: 01-21-2025 End: 01-21-2025 Patient encounter procedure 01/21/2025 10:30 AM EDT Office Visit [facility] [address] [place] [id number] Law Oropeza, DO [address] [facility] [address] [place] [address] [facility] Start: 01-13-2025 End: 01-25-2025 Comprehensive metabolic 2000 panel - Serum or Plasma Comprehensive metabolic panel Lab Routine Essential hypertension ([facility]/HCC) Expected: 01/13/2025, Expires: 01/25/2025 [facility] Comment on above: Expected: 01/13/2025 , Expires: 01/25/2025 Start: 01-13-2025 End: 01-25-2025 Lipid 1996 panel - Serum or Plasma Lipid panel Lab Routine Mixed hyperlipidemia ([facility]/HCC) Expected: 01/13/2025, Expires: 01/25/2025 [facility] Comment on above: Expected: 01/13/2025 , Expires: 01/25/2025 Start: 12-22-2024 End: 06-24-2025 CBC W Auto Differential panel - Blood [facility] Work Phone: Comment on above: Expected: 12/22/2024 (Approximate), Expires: 06/24/2025 Start: 12-22-2024 End: 06-24-2025 Comprehensive metabolic 2000 panel - Serum or Plasma [facility] Healthcare Comment on above: Expected: 12/22/2024 (Approximate), Expires: 06/24/2025 Start: 12-22-2024 End: 06-24-2025 Lipid 1996 panel - Serum or Plasma Lipid panel Lab Routine Mixed hyperlipidemia (CMS/HCC) Expected: 12/22/2024 (Approximate), Expires: 06/24/2025 [facility] Comment on above: Expected: 12/22/2024 (Approximate), Expires: 06/24/2025 Start: 12-22-2024 End: 06-24-2025 Thyrotropin [Units/volume] in Serum or Plasma [facility] Healthcare Comment on above: Expected: 12/22/2024 (Approximate), Expires: 06/24/2025 Start: 10-28-2024 End: 10-28-2024 Patient encounter procedure [facility] Comment on above: Arrived Start: 09-30-2024 End: 09-30-2024 Patient encounter procedure 09/30/2024 10:30 AM EST Office Visit [facility] [address] [place] [address] [facility] Start: 08-21-2024 End: 08-21-2024 Professional / ancillary services management [facility] Start: 07-21-2024 End: 07-21-2024 Patient encounter procedure [facility] Comment on above: Arrived Start: 07-18-2024 Medicare Annual Wellness (AWV) Medicare Annual Wellness (AWV) [facility] Start: 07-15-2024 End: 10-15-2024 DBT Breast - bilateral screening Bilateral screening mammogram with tomosynthesis Imaging Routine Encounter for screening mammogram for malignant neoplasm of breast Expected: 07/15/2024 (Approximate), Expires: 10/15/2024 [facility] Work Phone: Comment on above: Expected: 07/15/2024 (Approximate), Expires: 10/15/2024 Start: 07-15-2024 End: 10-15-2024 DXA Skeletal system Views for bone density DEXA bone density Imaging Routine Postmenopausal Expected: 07/15/2024 (Approximate), Expires: 10/15/2024 [facility] Comment on above: Expected: 07/15/2024 (Approximate), Expires: 10/15/2024 Start: 07-15-2024 End: 07-15-2024 Patient encounter procedure [facility] Comment on above: Arrived Start: 06-24-2024 End: 06-24-2024 Patient encounter procedure 06/24/2024 8:45 AM EDT Office Visit [facility] [address] [place] [phone] Law Oropeza DO [address] [place] [address] [facility] Start: 06-14-2024 Influenza vaccination Influenza Vacc ine (#1) [facility] Immunizations Immunization Date Immunization Notes Care Provider Fa cility 06-24-2024 Seasonal trivalent influenza vaccine, adjuvanted, preservative free Law Oropeza DO Work Phone: [facility] 06-24-2024 influenza virus vacc ine, unspecified formulation Brayden Manzanares DPM Work Phone: [facility] 07-18-2023 Influenza, Seasonal, Quadrivalent, Adjuvanted Law Oropeza DO Work Phone: [facility] 07-18-2023 influenza virus vacc ine, unspecified formulation Law Oropeza DO Work Phone: [facility] 07-17-2022 influenza, high dose seasonal, preservative-free Law Oropeza DO Work Phone: [facility] 06-08-2022 tetanus toxoid, redu harman diphtheria toxoid, and acellular pertussis vaccine, adsorbed Law Oropeza DO Work Phone: [facility] 08-24-2021 zoster vaccine recombinant Law Oropeza DO Work Phone: [facility] 08-08-2021 Moderna SARS-CoV-2 Booster Vaccination Law Oropeza DO Work Phone: [facility] 07-17-2021 influenza, high dose seasonal, preservative-free Law Oropeza DO Work Phone: [facility] 06-12-2021 zoster vaccine recombinant Law Oropeza DO Work Phone: [facility] 06-11-2021 zoster vaccine recombinant Law Oropeza DO Work Phone: [facility] 11-28-2020 Pfizer Purple Cap SARS-CoV-2 Vaccination Law Oropeza DO Work Phone: [facility] 08-01-2020 Seasonal trivalent influenza vaccine, adjuvanted, preservative free Law Oropeza DO Work Phone: [facility] 07-14-2019 influenza, injectabl e, quadrivalent, preservative free Law Oropeza DO Work Phone: [facility] 08-11-2018 influenza, high dose seasonal, preservative-free Law Oropeza DO Work Phone: [facility] 08-11-2018 Seasonal trivalent influenza vaccine, adjuvanted, preservative free Law Oropeza DO Work Phone: [facility] 07-19-2017 influenza, high dose seasonal, preservative-free Law Oropeza DO Work Phone: [facility] 07-19-2017 influenza, injectabl e, quadrivalent, preservative free Law Oropeza DO Work Phone: [facility] 08-01-2016 influenza, high dose seasonal, preservative-free Law Oropeza DO Work Phone: [facility] 07-14-2016 influenza, injectabl e, quadrivalent, preservative free Law Oropeza DO Work Phone: [facility] 07-14-2016 pneumococcal polysaccharide vaccine, 23 valent Law Oropeza DO Work Phone: [facility] 10-27-2015 pneumococcal conjuga te vaccine, 13 valent Law Johnna DO Work Phone: [facility] Healthcare 07-13-2012 zoster vaccine, live Law Oropeza DO Work Phone: [facility] Healthcare Payers Date Payer Category Payer [facility] BCBS [id number] 2019 Unknown BCBS BCBS [id number] 2019-Present [phone] [id number] [place], [place] [id number] 2004 Medicare [id number] 1959 Medicare [id number] 1959 Unknown [id number] 1939 Unknown [id number] 9.2.593 1939 Unknown [id number] 2.16.840.1.461033.3.57 9.2.593 1939 Unknown [id number] 2.16.840.1.556293.3.57 9.2.593 1939 Unknown [id number] 2.16.840.1.360892.3.57 9.2.1259 1939 Unknown [id number] 2.16.840.1.265609.3.57 9.2.1259 1939 Unknown [id number] 2.16.840.1.899288.3.57 9.2.1259 1939 Unknown [id number] 2.16.840.1.718954.3.57 9.2.1259 1939 Unknown [id number] 2.16.840.1.835996.3.57 9.2.1259 1939 Unknown [id number] 2.16.840.1.538064.3.57 9.2.1259 1939 Unknown [id number] 2.16.840.1.534293.3.57 9.2.1259 1939 Unknown [id number] 2.16.840.1.731058.3.57 9.2.1259 1939 Unknown [id number] [id number] 9.2.1259 1939 Unknown [id number] 2.16.840.1.765739.3.57 9.2.1259 1939 Unknown [id number] 2.16.840.1.535576.3.57 9.2.1259 1939 Unknown [id number] 9.2.1259 Social History Date Type Detail Facility Start: 07-18-2023 End: 06-24-2024 Tobacco smoking status MAIS Ex-smoker [facility] are End: 10-14-1956 History of tobacco use Current smoker [facility] Healthcare End: 10-14-1956 History of tobacco use Cigarette Smoker [facility] History of tobacco use Passive smoker [facility] Healthcare Start: 07-18-2023 End: 06-24-2024 Tobacco use and exposure Smokeless tobacco non-user [facility] Healthcare Start: 06-24-2024 End: 01-27-2025 Alcoholic beverage intake Current drinker of alcohol (finding) [facility] Start: 02-19-2024 End: 01-27-2025 History of Social function [facility] Start: 02-19-2024 End: 01-27-2025 Alcohol Use Disorder Identification Test - Consumption [AUDIT-C] [facility] How often to you hav e a drink containing alcohol? Never [facility] How many standard dr inks containing alcohol do you have on a typical day? Patient does not drink [facility] Healthcare Start: 07-10-2023 Alcohol Comment Alcohol: 1 or 2 drinks on a typical day/monthly or less Caffeine: 1-2 cups/day [facility] Healthcare Start: 1940 Sex assigned at Not on file N [facility] Healthcare Clinical Notes 06-24-2024 to 04-28-2025 Brayden Manzanares, SUZAN - 04/28/2025 1:00 PM EDTKavya Singh, LABORATORY ANALYST - 03/23/2025 2:00 PM EDTCpetar Manzanares, SUZAN - 01/27/2025 1:00 PM EDT Note Date & Type Note Facility 04-28-2025 History of Presen t illness Narrative Images from the original note were not included. HPI: Patient presents today for routine toenail care. Patient sees Dr. Oropeza for her medical issues. Her last visit was on: 01/21/25. No other concerns. Exam: General Examination: GENERAL APPEARANCE: awake, aware of surroundings, in no acute distress FOOT EXAM: 04/28/25 Vascular: DORSALIS PEDIS PULSE: 2/4 bilateral POSTERIOR [...] of the toenails. documented in this encounter [facility] 03-23-2025 History of Presen t illness Narrative Images from the original note were not included. Subjective Patient ID: Keiry Dickerson (: 1940) is a 84 y.o. female who presents for Cough. History of Present Illness The patient presents for evaluation of a cough. She reports a persistent cough that has been present since the weekend, accompanied by a sore throat. The severity of the cough has decreased, and the sore throat has resolved. She does not report any fevers or chills but mentions experiencing mild shortness of breath and wheezing. Additionally, she has been experiencing headaches and a sensation of pressure in her head, describing it as a generalized headache. She does not report any ear pain, nausea, or vomiting. She has lost 3 pounds, which she attributes to a lack of appetite. Her sleep pattern has been disrupted due to the cough, although she maintains adequate hydration. She recalls taking Augmentin in the past but has never used Tessalon Perles for cough management. Currently, she is using lozenges for symptomatic relief. Current Outpatient Medications Medication Instructions acetaminophen (TYLENOL) 500 mg, Every 8 hours PRN amoxicillin-clavulanate (Augmentin) 875-125 MG tablet 875 mg, Oral, 2 times daily aspirin 81 mg, Every 24 hours atorvastatin (Lipitor) 20 MG tablet Oral, Nightly benzonatate (TESSALON) 200 mg, Oral, 3 times daily PRN, Do not crush or chew. Calcium Citrate-Vitamin D (CALCIUM CITRATE PETITE/VIT D PO) 1 tablet, Every 24 hours Glucosamine 500 MG capsule 1 capsule, Every 24 hours hydrocortisone 2.5 % cream Topical, 2 times daily, to affected area ibandronate (BONIVA) 150 mg, Oral, Every 30 days, Take in morning with full glass of water on an empty stomach. No food, drink, meds, or lying down for 60 minutes after. magnesium oxide (MAG-OX) 400 mg, Every 24 hours jxtuogoupdmp-fbzq-pxgbwdcw-folic acid (Centrum Silver, geriatric,) tablet 1 tablet, Daily niacin 500 mg, Every 24 hours pramoxine-hydrocortisone, perianal, (Analpram HC) 2.5-1 % cream 1 application , Rectal, 3 times daily PRN rOPINIRole (REQUIP) 0.25 mg, Nightly PRN Allergies Allergen Reactions Sulfanilamide Unknown Patient Active Problem List Diagnosis Stage 3a chronic kidney disease (HCC) (CMS/HCC) Essential hypertension (CMS/HCC) Hemorrhoid Hyperlipidemia (CMS/HCC) Osteoporosis (CMS/HCC) Primary osteoarthritis involving multiple joints RLS (restless legs syndrome) Vitamin D deficiency Primary insomnia Chronic idiopathic constipation Trochanteric bursitis of left hip Review of Systems Constitutional: Positive for fatigue. Negative for chills and fever. HENT: Positive for congestion, postnasal drip, rhinorrhea, sinus pressure, sinus pain and sore throat. Negative for trouble swallowing. Respiratory: Positive for cough, shortness of breath and wheezing. Gastrointestinal: Negative for diarrhea, nausea and vomiting. Neurological: Positive for headaches. Negative for dizziness and light-headedness. Objective Vital signs: BP 122/60 (Patient Position: Sitting) Pulse 82 Resp 16 SpO2 96% Physical Exam Constitutional: Appearance: She is ill-appearing (mildly). HENT: Head: Normocephalic. Right Ear: Tympanic membrane normal. Left Ear: Tympanic membrane normal. Nose: Congestion present. Mouth/Throat: Mouth: Mucous membranes are moist. Pharynx: Posterior oropharyngeal erythema (PND) present. Eyes: Pupils: Pupils are equal, round, and reactive to light. Cardiovascular: Rate and Rhythm: Normal rate and regular rhythm. Pulmonary: Effort: Pulmonary effort is normal. Breath sounds: Normal breath sounds. Comments: Dry cough noted Lymphadenopathy: Cervical: No cervical adenopathy. Skin: General: Skin is warm and dry. Neurological: Mental Status: She is alert and oriented to person, place, and time. Psychiatric: Mood and Affect: Mood normal. Assessment/Plan Assessment & Plan 1. Sinus infection. - Persistent cough since the weekend, sore throat resolved, decreased cough severity. - Increased pain and limited mobility. - No fevers or chills, mild shortness of breath, wheezing, headaches, pressure in head, no ear pain, nausea, or vomiting, weight loss of 3 pounds, disrupted sleep, adequate hydration. - Augmentin 875 mg twice daily for 7 days prescribed, advised to take with food, contact office if adverse effects occur. 2. Cough. - Prescription for Tessalon Perles 100 mg every 8 hours or three times daily as needed. - Using lozenges for symptomatic relief, advised to stay hydrated. - Kuvu-tbn-tlpckvn medications such as Tylenol or Motrin recommended for additional symptom relief. Problem List Items Addressed This Visit None Visit Diagnoses Acute non-recurrent pansinusitis - Primary Relevant Medications amoxicillin-clavulanate (Augmentin) 875-125 MG tablet Acute cough Relevant Medications benzonatate (Tessalon) 200 MG capsule Health Maintenance Topic Date Due Medicare Annual [...] Kavya Singh NP documented in this encounter [facility] 01-27-2025 History of Presen t illness Narrative Images from the original note were not included. HPI: Patient presents today for routine toenail care. Patient sees Dr. Oropeza for her medical issues. Her last visit was on: 01/21/25. No other concerns. Exam: General Examination: GENERAL APPEARANCE: awake, aware of surroundings, in no acute distress FOOT EXAM: 01/27/25 Vascular: DORSALIS PEDIS PULSE: 2/4 bilateral POSTERIOR [...] of the toenails. documented in this encounter [facility] 01-21-2025 Evaluation note Diagnosis RLS (restless legs syndrome)- Primary Restless legs syndrome (RLS) Chronic kidney disease, stage 3a (HCC) (CMS/HCC) Essential hypertension (CMS/HCC) Unspecified essential hypertension Stage 3a chronic kidney disease (HCC) (CMS/HCC) Primary osteoarthritis involving multiple joints Vitamin D deficiency Mixed hyperlipidemia (CMS/HCC) Mixed hyperlipidemia Trochanteric bursitis of left hip Chronic idiopathic constipation Unspecified constipation documented [facility] encounter [facility] [id number] History of Present illness Narrative* Brayden Manzanares DPM - 10/28/2024 1:00 PM EST Images from the original note were not [...] borders of the left hallux nail but noevidence of erythema, hypertrophy of the nail fold [...] pain and problems developing from the overgrowth ofthe toenails. documented in this encounterColumbia Regional HospitalEevrryorng12-91-2334 History of Present illness Narrative* Kavya Singh, LABORATORY ANALYST - 09/30/2024 3:00 PM EST Images from the original note were not [...] She describes her cough as hacking in nature.She also reports feeling weak and fatigued. She had an episode of walking pneumonia in 01/2024, which lasted for a month and required several doctor's appointments. During that time, she was treated with doxycycline, Medrol Dosepak, and codeine cough syrup, which did not provide significant relief.Tessalon Perles were more effective, and she continues [...] MG tablets Take as directed on package. aacermghwlhf-nabo-dwbjjnkr-folic acid (Centrum Silver, geriatric,) tablet 1 tablet, Daily niacin 500 mg, Every 24 hours pramoxine-hydrocortisone, perianal, (Analpram HC) 2.5-1 % cream 1 application , Rectal, 3 times daily PRN rOPINIRole (REQUIP) 0.25 mg, Nightly PRN traZODone (DESYREL) 50 mg, Oral, Nightly PRN Allergies Allergen Reactions Sulfanilamide Unknown Patient Active Problem List Diagnosis Stage 3a chronic kidney disease (HCC) ([facility]) Essential hypertension ([facility]/HCC) Hemorrhoid Hyperlipidemia ([facility]/HCC) Osteoporosis ([facility]/HCC) Primary osteoarthritis involving multiple joints RLS (restless [...] care on and was prescribed Tamiflu. She reportspersistent symptoms, including a full head sensation and a cough. A prescription for doxycycline and Medrol Dosepak has been issued to [facility] in [place]. She is advised to commence the doxycycline [...] follow-up. Kavya Singh NP documented in this encounterColumbia Regional [id number] History of Present illness Narrative* Charisma Nelson MA - 09/24/2024 3:10 PM EST Images from the original note were not included. [address], [address] [facility], [address] P: [phone] F: [phone] HPI Historian of HPI: patient Keiry Dickerson [...] [x] [] Myalgia [x] [] Sinus Pain LANDERSO [x] [] Sinus Pressure Additional Comments: pt [...] as directed. Push fluids. OTC Mucienx DM, tylenoland motrin as needed for pain. Follow with PCP as directed. To the ER for any worsening symptoms - oseltamivir (Tamiflu) 75 MG capsule; Take 1 capsule (75 mg) by mouth in the morning and 1 capsule(75 mg) before bedtime. Do all this for 5 days. Dispense: 10 capsule; Refill: 0 2. Acute cough Dx and tx reviewed - STATUS COVID-19/FLU documented in this encounterColumbia Regional [id number] Telephone encounter Note* Telephone Encounter - Kaylie Raymond LPN - 07/21/2024 4:04 PM EDT Handicap melva printed and signature from Dr Oropeza [facility] [id number] Miscellaneous Notes* Telephone Encounter - Kaylie Raymond LPN - 07/21/2024 4:04 PM EDT Handicap melva printed and signature from Dr Oropeza * Telephone Encounter - Dimas Turcios - 07/21/2024 3:33 PM EDT Pt came in and was inquiring about a handicap placard. She wasn't sure if she needed an appointmentor if Johnna could prescribe her one. She mostly wants to use it when driving around her older sister. Please call with options documented in this encounterColumbia Regional [id number] Telephone encounter Note* Telephone Encounter - Dimas Turcios - 07/21/2024 3:33 PM EDT Pt came in and was inquiring about a handicap placard. She wasn't sure if she needed an appointmentor if Johnna could prescribe her one. She mostly wants to use it when driving around her older sister. Please call with options [facility] HospitalCkykpohidt03-29-9028 History of Present illness Narrative* Brayden Manzanares DPM - 07/21/2024 3:15 PM EDT Images from the original note were not [...] borders of the left hallux nail but noevidence of erythema, hypertrophy of the nail fold [...] pain and problems developing from the overgrowth ofthe toenails. documented in this encounterColumbia Regional [id number] History of Present illness Narrative* Americo Leone NP - 07/15/2024 11:00 AM EDT Images from the original note were not [...] Past Surgical History: Procedure Laterality Date APPENDECTOMY 1959 BLADDER SUSPENSION SECTION, LOW TRANSVERSE 1964 COLONOSCOPY 05/25/2020 Normal MA DRAIN/INJECT LARGE JOINT/BURSA Arthrocentesis of the right shoulder joint 1969' TONSILLECTOMY childhood SOCIAL HISTORY: Social History Tobacco [...] (MAG-OX) 400 mg, Oral, Every 24 hours zvagytxwdjcv-lvlx-pxoxawsu-folic acid (Centrum Silver, geriatric,) tablet 1 tablet, [...] patient today by Americo Leone NP. Demographics updated.The past medical history, family history, and social history reviewed and updated. The medication list (including supplements) has been reconciled. -A list of other providers involved with the patient's care and any durable medical goods providers documented. -Depression screening was completed andaddressed as indicated. Cognitive function was assessed by direct observation and assessment of ability to perform ADLs and iADLs was done. As well as Mini-Cog assessment. -We reviewed, and discussedas indicated, safety issues, including falls risk assessment. -Time was spent reviewing and discussi ng age-appropriate screenings, immunizations and indicated laboratory monitoring. [...] living will, and a healthcare, power of assistant county attorney. She wishes to be a full [...] were reviewed and followed. Americo Leone, MSN, CORONER FORENSIC TECHNICIAN-BRANCH OFFICER documented in this encounterColumbia Regional [id number] History of Present illness Narrative* Law Oropeza, DO - 06/24/2024 8:45 AM EDT Images from the original note were not [...] SECTION, LOW TRANSVERSE 1964 COLONOSCOPY 05/25/2020 Normal MA DRAIN/INJECT LARGE JOINT/BURSA Arthrocentesis of the right [...] (MAG-OX) 400 mg, Oral, Every 24 hours cocojlpcjliq-ovvz-lausfstt-folic acid (Centrum Silver, geriatric,) tablet 1 tablet, [...] Visit Stage 3a chronic kidney disease (HCC) (CMS/HCC) Hyperlipidemia (CMS/HCC) Osteoporosis (CMS/HCC) Primary osteoarthritis involving multiple joints RLS (restless [...] breast tenderness or soreness.at this time no additionalchange in medication required. Flu shot given. Return to clinic at six months. This note was Dictated and not read. documented in this encounterNOSD HealthcareEvaluation note* Diagnosis Medicare annual wellness visit, subsequent- Primary ACP (advance care planning) Other specified counseling Encounter for screening mammogram for malignant neoplasm of breast Postmenopausal Asymptomatic postmenopausal status (age-related) (natural) Mixed hyperlipidemia (CMS/HCC) Mixed hyperlipidemia Essential hypertension ([facility]/HCC) Unspecified essential hypertension [facility] Diagnosis Onychomycosis- Primary Dermatophytosis of nail Pain in both feet [facility]* Diagnosis 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 ([facility]/HCC) [facility]* Diagnosis Influenza A- Primary Influenza with other respiratory manifestations Acute cough [facility]* Diagnosis RLS (restless legs syndrome)- Primary Restless legs syndrome (RLS) Mixed hyperlipidemia (CMS/HCC) Mixed hyperlipidemia Vitamin D deficiency Age-related osteoporosis without current pathological fracture (CMS/HCC) Primary osteoarthritis involving multiple joints Stage 3a chronic kidney disease (HCC) (CMS/HCC) Primary insomnia Persistent disorder of initiating or maintaining sleep Need for immunization against influenza Need for prophylactic vaccination and inoculation against influenza Essential hypertension (CMS/HCC) Unspecified essential hypertension Other fatigue [facility] Diagnosis Lower respiratory infection- Primary Other diseases of respiratory system, not elsewhere classified Acute non-recurrent pansinusitis [facility] Diagnosis Onychomycosis- Primary Dermatophytosis of nail Pain in both feet [facility] Diagnosis Acute non-recurrent pansinusitis- Primary Acute cough documented in this encounter [facility] Summary Purpose Family History No Family [...] section and content) DATE CREATED AUTHOR 05/29/2022 [facility] Me dical Specialist DATE CREATED AUTHOR AUTHOR'S ORGANIZ ATION 01/19/2023 [facility] DATE CREATED AUTHOR AUTHOR'S ORGANIZ ATION 05/02/2025 [facility] dical Specialists [facility] Care Teams (unrecognized sec tion and content) Soapstoner Relationship Specialty Start Date End Date Law Oropeza DO [address] [place] [address] PCP - ACO Reach 03/07/23 Law Oropeza DO [address] [place] [address] PCP - General Internal Medicine 02/19/23 Dave Powers MD [address] [place] [address] Referring Physician Ophthalmology 07/18/23 Soapstoner Relationship Specialty Start Date End Date Law Oropeza DO [address] [place] [address] PCP - ACO Reach 03/07/23 Law Oropeza DO [address] [place] [address] PCP - General Internal Medicine 02/19/23 Dave Powers MD [address] [place] [address] Referring Physician Ophthalmology 07/18/23 Soapstoner Relationship Specialty Start Date End Date Law Oropeza DO [address] [place] [address] PCP - ACO Reach 03/07/23 Law Oropeza DO [address] [place] [address] PCP - General Internal Medicine 02/19/23 Dave Powers MD [address] [place] [phone] Referring Physician Ophthalmology 07/18/23 Soapstoner Relationship Specialty Start Date End Date Law Oropeza DO [address] [place] [address] PCP - ACO Reach 03/07/23 Law Oropeza DO [address] [place] [address] PCP - General Internal Medicine 02/19/23 Dave oPwers MD [address] [place] [address] Referring Physician Ophthalmology 07/18/23 Soapstoner Relationship Specialty Start Date End Date Law Oropeza DO [address] [place] [address] PCP - ACO Reach 03/07/23 Law Oropeza DO [address] [place] [address] PCP - General Internal Medicine 02/19/23 Dave Powers MD [address] [place] [address] Referring Physician Ophthalmology 07/18/23 Soapstoner Relationship Specialty Start Date End Date Law Oropeza DO [address] [place] [address] PCP - ACO Reach 03/07/23 Law Oropeza DO [address] [place] [address] PCP - General Internal Medicine 02/19/23 Dave Powers MD [address] [place] [address] Referring Physician Ophthalmology 07/18/23 Soapstoner Relationship Specialty Start Date End Date Law Oropeza DO [address] [place] [address] PCP - ACO Reach 03/07/23 Law Oropeza DO [address] [place] [address] PCP - General Internal Medicine 02/19/23 Dave Powers MD [address] [place] [address] Referring Physician Ophthalmology 07/18/23 Soapstoner Relationship Specialty Start Date End Date Law Oropeza DO [address] [facility] [address] [place] [address] PCP - ACO Reach 03/07/23 Law Oropeza DO [address] [facility] [address] [place] [address] PCP - General Internal Medicine 02/19/23 Dave Powers MD [address] [place], [place] [id number] Referring Physician Ophthalmology 07/18/23 Soapstoner Relationship Specialty Start Date End Date Law Oropeza DO [address] [address] PCP - ACO Reach 03/07/23 Law Oropeza DO [address] [address] PCP - General Internal Medicine 02/19/23 Dave Powers MD [address] [place] [address] Referring Physician Ophthalmology 07/18/23 Soapstoner Relationship Specialty Start Date End Date Law Oropeza DO [address] [facility] [address] [place] [address] PCP - ACO Reach 03/07/23 Law Oropeza DO [address] [facility] [address] [place] [address] PCP - General Internal Medicine 02/19/23 Dave Powers MD [address] [place] [address] Referring Physician Ophthalmology 07/18/23 Reason for Visit (unrecogniz ed section and content) Reason Comments Cough Vomiting Headache Reason Comments 4 month follow up Patient presents tod ay for a 4 month routine follow up. Labs are in chart for review. Denies any problems. Reason Comments Cough Reason Comments 6 Month Follow-up Pt is being seen tod ay for management of chronic conditions. Pt had lab work done in preparations for todays visit, results and recommendations will be reviewed with them. FOR RECORDS PERTAINING TO PATIENTS WHO ARE [...] BE BASED ON THE PRIMARY CLINICAL RECORDS. [employer] provides no warranty or guarantee of the accuracy or completeness of information in this document.
[2025-07-23 11:22] LABS: Hematocrit 42.4 % (36.0-48.0); Hemoglobin 14.0 g/dL (12.0-16.0); Immature Granulocytes Abs Auto 0.01 10^3/uL (0.00-0.03); Immature Granulocytes Pct Auto 0.2 % (0.0-0.5); Lymphocytes Absolute Auto 1.7 10^3/uL (1.2-3.8); Mean Corpuscular HGB Conc 33.0 g/dL (29.9-35.2); Mean Corpuscular Hemoglobin 30.2 pg (26.7-34.0); Mean Corpuscular Volume 91.4 fL (81.0-99.0); Platelet Count 156 10^3/uL (150-450); Red Blood Count 4.64 10^6/uL (4.20-5.40); White Blood Count 5.2 10^3/uL (4.0-11.0)
[2025-07-23 11:24] LABS: Alanine Aminotransferase 30 U/L (14-59); Albumin Globulin Ratio 1.0; Albumin Level 3.6 g/dL (3.4-5.0); Alkaline Phosphatase 67 U/L (46-116); Anion Gap 8.4; Aspartate Amino Transferase 19 U/L (15-37); Blood Urea Nitrogen 14.0 mg/dL (7.0-18.0); Calcium 9.2 mg/dL (8.5-10.1); Carbon Dioxide 27.9 mmol/L (21.0-32.0); Chloride 107 mmol/L (98-107); Cholesterol 137 mg/dL (<=200); Estimated GFR (African America >60 (>=60 mL/min/1.73m^2); Estimated GFR (Non-African Ame >60 (>=60 mL/min/1.73m^2); Globulin 3.7 g/dL; Glucose 99 mg/dL (74-106); HDL Cholesterol 53 mg/dL (40-60); Potassium 4.3 mmol/L (3.5-5.1); Sodium 139 mmol/L (136-145); Total Protein 7.3 g/dL (6.4-8.2); Triglycerides 85 mg/dL (<=150); VLDL CHOLESTEROL 17.0 mg/dL
== END 2025-07-23 09:02 | disposition home or self-care (01) ==
PROVIDERS: PCP Internal Medicine; Visit Provider Internal Medicine
DX: E78.2 Mixed hyperlipidemia (principal); E55.9 Vitamin D deficiency, unspecified; I10 Essential (primary) hypertension
CPT/HCPCS: 36415; 80053; 80061; 82306; 85025